=== PATIENT | female | born 1970 | race Caucasian/White ===

== ENCOUNTER 2018-03-15 09:00 | Outpatient (RCR) | payer OTHER, SELFPAY ==
--- NOTE | 2018-03-15 11:07 | BH.SGPN ---
Service Group Progress Note - Session Psychotherapy Session #1 Date Open:: 03/15/18 Time Started:: 09:10 Time Stopped:: 10:00 Type of Group:: Process - 4 group members Goal of Group:: The goal of today's group was to check-in with client's mood, stressors, and positives, and review homework. Client Response/Progress/Benefit:: Pt participated when prompted. This was pt's first group and she shared that she is in the program to better manage her depression, anxiety, and stress. Reports that getting overwhelmed in the past few months has led to depression. No progress noted. Will continue in program to maintain safety, prevent decompensation, and increase coping skills. Staff Interventions:: Therapist used open-ended questions to elicit information about client's current stressors and mood state. Therapist was supportive by using active listening and reflection.
--- NOTE | 2018-03-17 10:50 | BH.NOTE ---
BH: Inpatient Note - Notes Behavioral Health Inpatient Note: Client's preferred pharmacy is: [facility] [address] [place] [address]
--- NOTE | 2018-03-17 11:03 | BH.SGPN ---
Service Group Progress Note - Session Psychotherapy Session #1 Date Open:: 03/17/18 Time Started:: 09:10 Time Stopped:: 10:00 Type of Group:: Process - 6 group members Goal of Group:: The goal of today's group was to check-in with client's mood, stressors, and positives, and review homework Client Response/Progress/Benefit:: Pt spoked when prompted. Attentive throughout the group. Emotion for today is hopeful. Discussed being nervous and overwhelmed during her first day in IOP on Tuesday. Discussed how emotional and exhausting coming to IOP was that she ended up falling asleep when she got home. Ultimately, this led to missing an appointment leading to anxiety and ruminations. Overall she reports that she is hopeful that IOP will improve her symptoms. Reports that being off work for the last two days has helped decrease some stress. Benefited from group support and feedback. Will continues in IOP to maintain safety, prevent further decompensation, and increase functioning. Eye Contact:: Fair Motor Activity:: Restless Appearance:: Casual Speech:: Appropriate Mood:: Anxious, Depressed Affect:: Congruent Thoughts:: Linear, Logical, No evidence of hallucinations/delusions noted Staff Interventions:: Therapist used open-ended questions to elicit information about client's current stressors and mood state. Therapist was supportive by using active listening and reflection.
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
--- NOTE | 2018-03-17 13:41 | BH.DR.ITP ---
Initial Treatment Plan - Patient Information Visit Information: ADMISSION DATE: EXPECTED LOS: 4-6 weeks Diagnoses:: Major depressive disorder recurrent moderate F 33.1 - Problems/Symptoms Problem #1:: Depression Symptom:: Sad mood, anhedonia, decreased energy, recent suicidal ideation, biologic disruption of sleep and appetite Problem #2:: Anxiety Symptom:: rumination
--- NOTE | 2018-03-17 14:32 | BH.SGPN_ITS ---
Service Group Progress Note - Session Psychotherapy Session #2 Date Open:: 03/17/18 - 7 group members Time Started:: 10:10 Time Stopped:: 11:15 Targeted Problem #:: 1 Type of Group:: Illness Management Goal of Group:: To increase understanding of what conflict is and increase awareness of how group members manage conflict. Client Response/Progress/Benefit:: Client responded well to session, active participant. Client appeared to connect with the quote, nodding to peers? comments. Client reported one can have internal and external conflict. Client identified her conflict resolution style as accommodating at work as she ?doesn? t want to stir the pot? which often leads to client feeling like her opinions and thoughts do not matter. Client shared she is not happy with her current conflict resolution style as it creates low self-esteem and her needs not being met. Client appeared to benefit from increasing awareness of her personal conflict resolution style. Client first week of IOP, limited progress, but appears to be gaining awareness per her report. Client to continue IOP to promote mood stability and prevent decompensation. Eye Contact:: Good Motor Activity:: Appropriate Appearance:: Neat Speech:: Appropriate Mood:: Anxious Affect:: Constricted Thoughts:: Linear, No evidence of hallucinations/delusions noted Staff Interventions:: Therapist facilitated discussion about conflict and conflict resolution. Therapist led group in an activity in which group members had to identify their initial response to conflict and how their response changes based on different situations. Therapist assisted clients with connecting the impact current conflict style has on their mental health.
--- NOTE | 2018-03-20 10:31 | BH.SGPN_ITS ---
Service Group Progress Note - Session Psychotherapy Session #1 Date Open:: 03/20/18 - 6 group members Time Started:: 09:03 Time Stopped:: 10:10 Targeted Problem #:: 1 Type of Group:: Process Goal of Group:: The goal of today's group was to check-in with client's mood, stressors, and positives, review homework and introduce topic for the day. Client Response/Progress/Benefit:: Client responded well to session, quiet, but participating when prompted. Client reports feeling pleased as client normally struggles with Mother's Day and not having her own children, but was able to better cope with her emotions rather than isolate and have negative thinking. Client stated she spent time with supports this weekend and was able to see her mother, who has progressing health issues, without feeling a crash after. Client reported being aware of her emotions and being realistic with herself has helped client increase emotional regulation. Client appeared to benefit from reflecting on positives from the weekend. Progress noted in client' s generalization of coping skills and use of social supports, but can continue to benefit from mood stability. Eye Contact:: Good Motor Activity:: Appropriate Appearance:: Neat Speech:: Appropriate Mood:: Euthymic Affect:: Constricted Thoughts:: Linear, No evidence of hallucinations/delusions noted Staff Interventions:: Therapist used open-ended questions to elicit information about client's current stressors and mood state. Therapist was supportive by using active listening and reflection.
--- NOTE | 2018-03-20 15:37 | BH.SGPN ---
Service Group Progress Note - Session Psychotherapy Session #2 Date Open:: 03/20/18 Time Started:: 10:21 Time Stopped:: 11:22 Targeted Problem #:: 1 Type of Group:: Illness Management - 6 participants Goal of Group:: To increase understanding of the impact viewing situations as impossible can have on our mental health. Client Response/Progress/Benefit:: Client well engaged active participant throughout, appearing to respond positively to group. She did well to engage in discussion reviewing how an impossible mindset can impact ones mental-health symptoms. Client initially took on a passive participatory role in the activity portion; however, with encouragement was able to actively engage and provide input and direction to the participants who were unable to see. CLient benefitted from processing her thoughts and emotions experienced in the activity and identified that fear of failure and self-doubt held her back initially. Client able to make connections between emotions experienced in the activity and her ability to manage stressful situations in her own daily life. Client recommended continued emphasis in treatment on improving stress management skills and challenging ruminating thoughts that cause overwhelming anxiety. Eye Contact:: Fair Motor Activity:: Appropriate Appearance:: Casual Speech:: Appropriate Mood:: Anxious Affect:: Constricted Thoughts:: Linear, Logical, No evidence of hallucinations/delusions noted Staff Interventions:: Therapist facilitated discussion about what it means to overcome what seems impossible. Therapist led group in an activity that would initially seem impossible to complete, but once group members looked at the problem in a different way they would be able to see alternative solutions. Therapist utilized the activity as a tool to discuss overcoming those situations that seem impossible to get through. Psychotherapy Session #3 Date Open:: 03/20/18 Time Started:: 11:28 Time Stopped:: 12:18 Targeted Problem #:: 1 Type of Group:: Functional Skills Development - 6 participants Goal of Group:: To identify personal barriers that get in the way of accomplishing tasks and identify internal and external resources to help overcome difficult situations. Client Response/Progress/Benefit:: Client responded well to session and was able to remain actively engaged in the discussion. She reviewed the definitions of internal and external barriers and resources with the group and worked to determine the potential barriers one may have that causes them to remain in the impossible mindset. Client appeared to benefit from listening to others share their own personal barriers and expressed relating to the internal barriers of black and white thinking and fear of failure or embarassment. Client is making progress in her ability to connect with the materials discussed in treatment and would benefit from continued focus on improving her ability to apply these skills to her own life. Eye Contact:: Good Motor Activity:: Appropriate Appearance:: Casual Speech:: Appropriate Mood:: Anxious Affect:: Congruent Thoughts:: Linear, Logical, No evidence of hallucinations/delusions noted Staff Interventions:: Therapist facilitated discussion about internal and external resources and helped clients connect various internal resources they use. Therapist provided group members with a handout that gave information about various external resources the clients could utilize to get support. Therapist gave clients a worksheet in which they were asked to identify several barriers that get in their way to overcoming difficult situations. They also were asked to identify several internal and external resources they could use when needed.
--- NOTE | 2018-03-22 13:20 | BH.MTP ---
Master Treatment Plan - Patient Information Program Physician:: Dr. Huynh Primary Therapist:: Beatriz Chamberlain, [facility] - Psychiatric Diagnoses Psychiatric Diagnoses:: Major depressive disorder recurrent moderate. Anxiety unspecified. Cluster B traits Diagnosis Code(s):: F 33.1 - Estimated LOS Estimated LOS (in weeks):: 6 Problem/Goal #1 - Problem/Goal #1 Stated Goal:: Client will reduce depression, suicidal ideations and hopelessness due to Major Depressive Disorder through [facility] Services. Description of Barriers: Client's negative thinking, distorted thought patterns, grief from father's recent , stress at work, difficulty applying skills learned and suicidal ideations are all potential barriers to treatment. Functional Impact: client's worsening depression and anxiety are contributing to client having a challenging time completing her job duties as a result is behind at work. Client also not able to complete daily responsibilites at home i.e. dishes, sweeping, laundry, etc. Client not functioning at baseline. Goal Relevant Strengths/Supports: Client is intelligent, has good insight, and is motivated to get better. - Objectives Objective #1 Stated Objective: Client will identify 2-3 depressive thinking patterns and be able to challenge and replace negative thoughts. Interventions: Therapist will assist client in identifying depressive thinking patterns and provide client with resources to help teach client strategies in defeating negative thoughts. Discharge Criteria: Client will have met this objective when can identify at least two depressive thinking patterns and be able to defeat depressive and suicidal thoughts. Target Date: 04/26/18 Review Date: 04/12/18 Objective #2 Stated Objective: Client will learn and utilize 2-3 healthy coping strategies to manage mental health symptoms. Interventions: Therapist will help client develop insight into his mental health triggers and help identify strategies to help manage symptoms. Discharge Criteria: Client will have met this goal when can identify and has utilized at least 2 healthy coping strategies that help manage depressive symptoms. Target Date: 04/26/18 Review Date: 04/12/18 Problem/Goal #2 - Problem/Goal #2 Stated Goal:: Reduce overall frequency, intensity, and duration of the anxiety so that daily functioning is not impaired. Description of Barriers: Client's negative thinking, distorted thought patterns, grief from father's recent , stress at work, difficulty applying skills learned and suicidal ideations are all potential barriers to treatment. Functional Impact: client's worsening depression and anxiety are contributing to client having a challenging time completing her job duties as a result is behind at work. Client also not able to complete daily responsibilites at home i.e. dishes, sweeping, laundry, etc. Client not functioning at baseline. Goal Relevant Strengths/Supports: Client is intelligent, has good insight, and is motivated to get better. - Objectives Objective #1 Stated Objective: Client will identify 2-3 anxiety triggers and 2 coping skills to use when feeling anxious. Interventions: Therapist will help client identify her triggers and teach client various coping strategies to effectively cope with anxious symptoms. Discharge Criteria: Client will have achieved this goal when can identify at least 2 triggers, verbalize two healthy coping strategies to manage anxious symptoms. Target Date: 04/26/18 Review Date: 04/12/18
--- NOTE | 2018-03-23 10:34 | BH.SGPN_ITS ---
Service Group Progress Note - Session Psychotherapy Session #1 Date Open:: 03/23/18 - 4 group members Time Started:: 09:05 Time Stopped:: 10:10 Targeted Problem #:: 1 Type of Group:: Process Goal of Group:: The goal of today's group was to check-in with client's mood, stressors, and positives, review homework and introduce topic for the day. Client Response/Progress/Benefit:: Client responded well to session, participating when prompted and connecting with peers. Client reported when she arrived at group today she felt completely overwhelmed like I had been chewed up and spit out, but after processing her situation she feels content. Client shared she has been experiencing increased anxiety regarding decision- making and work. Client stated for years she has been putting her mental health on the backburner and taking a few days off at a time as a Band-Aid. Client reported she now realizes the consequences if she does not take time to address and improve her emotional wellness. Client shared her anxiety has been pouring over into other areas of her life causing her to shutdown. Client stated yesterday she felt very anxious and normally I would isolate but client went out with a friend and had self-awareness of her emotions. Client appeared to benefit from receiving support from group. Progress noted in client's increased self-awareness, but can continue to benefit from implementing thought challenging and decision-making skills. Eye Contact:: Good Motor Activity:: Appropriate Appearance:: Neat Speech:: Appropriate Mood:: Anxious Affect:: Constricted - became tearful Thoughts:: Linear, No evidence of hallucinations/delusions noted Staff Interventions:: Therapist used open-ended questions to elicit information about client's current stressors and mood state. Therapist was supportive by using active listening and reflection.
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
--- NOTE | 2018-03-23 14:30 | BH.MDN ---
Multi-Disciplinary Note - Note 60-min Individual Time Started:: 12:20 Date: 03/23/18 Purpose of session/treatment goals addressed:: Purpose of session was to assess current symptoms and stressors. other topics included: solidifying treatment goals, gathering additional background, and coping skills. Eye Contact:: Good Motor Activity:: Appropriate Appearance:: Neat Speech:: Appropriate Mood:: Anxious Affect:: Congruent Thoughts:: Linear, Logical, No evidence of hallucinations/delusions noted Staff Interventions:: Therapsit utilized open ended questions to elicit pt's current symptoms and stressors. Therapist collaborated with pt to solidfy treatment goals for IOP. Therapist elicited further background information and helped pt connect past experiences to current situation. Therapist provided pt with homework to make a list of the current and past healthy coping skills that pt uses. Therpist encouraged pt to set small daily goals Client Response:: Pt receptive to session by openly communicating thoughts and feelings. Pt reported she has been anxious about work which makes her feel overwhelmed. Pt reported she had a difficult conversation with her boss, which had resulted in increased anxiety. Pt shared initially she wanted to isolate to ignore her problems, but was able to stop herself because she recognized isolating wasn't going to help her. Pt reported instead of isolating she went out with a friend which she shared did seem to help. Pt shared she was able to work things out this morning and is already feeling better. Pt confirmed treatment goals of reducing depression and anxiety by increasing coping skills and challenging negative thought patterns. Pt able to identify several healthy coping skills she has found to be helpful in the past and agreeable to start incorporating into her daily routine. Risks/Concerns:: Pt has hx of passive thoughts of , denies current plan or intention. Progress Toward Goals/Plan:: Progress noted with pt using healthy skill of seeking support when anxious versus isolating. Limited progress given pt has only been in IOP for one week. Pt to continue IOP level of care to decrease depression and anxiety, improve daily functioning and prevent decompensation. Time Stopped:: 13:30
--- NOTE | 2018-03-23 17:00 | BH.SGPN_ITS ---
Service Group Progress Note - Session Psychotherapy Session #2 Date Open:: 03/23/18 Time Started:: 10:21 Time Stopped:: 11:15 Targeted Problem #:: 1 Type of Group:: Illness Management - 4 participants Goal of Group:: To increase understanding of self-esteem and the impact it can have on mental health. Another goal was to identify what factors impact self- esteem levels and what ways self-talk may be negatively impacting mental health and self-esteem levels. Client Response/Progress/Benefit:: Client responded well to session and appeared to connect with group topic of self-esteem. Client was able to provide input to the group and openly discussed the various factors that may contribute to her own self-esteem levels. Client identified that trying to keep up with the Lloyd' or meet the unrealistic pressures of others as major factors impacting client perception of self. She appeared to benefit from discussion reviewing the way we talk to ourselves impacts out sense of self worth. CLient identified that she often tells herself she doesn;t do a good job or is a failure at work which leads her to feel overwhelmed and become frustrated or shut down. CLient identified a desire to begin to challenge these negative messages she often uses when talking to self and indicated connecting with the statements shared by others. CLient continues to display increased understanding of treatment concepts discussed and is recommended continued IOP to work on beginning to actively apply these concepts to daily life. Eye Contact:: Good Motor Activity:: Appropriate Appearance:: Casual Speech:: Appropriate Mood:: Anxious, Dysthymic Affect:: Congruent Thoughts:: Linear, Logical, No evidence of hallucinations/delusions noted Staff Interventions:: Therapist facilitated group discussion about defining self -confidence and eliciting what clients are confident about. Therapist helped group members make connections between their own self-talk messages and the impacts can have on mental health and self-esteem levels. Therapist provided each group member with a handout in which members further explored personal self -talk statements and led the group in processing each statement. Therapist provided support by using active listening. Psychotherapy Session #3 Date Open:: 03/23/18 Time Started:: 11:27 Time Stopped:: 12:22 Targeted Problem #:: 1 Type of Group:: Functional Skills Development - 4 participants Goal of Group:: To increase self-awareness of view of self and identify how view impacts mental health functioning. Another purpose was to identify strategies for challenging negative self-talk and increasing awareness and understanding of personal rights Client Response/Progress/Benefit:: I again did well to respond to the session was actively engaged in the discussion covering strategies challenge negative self talk statements as well as the personal bill of rights activity. Indicated oftentimes struggling to challenge negative self talk because she believes it is deserved or out of her control. Client provided example specific to her occupation and appeared to benefit from processing this with the group. Client was open and receptive to positive feedback provided by fellow participants encouraging her to try and identify alternative perspectives. She worked with the group on reviewing and processing the personal bill of rights handout. Client indicated often experiencing difficulty in allowing herself to believe she has the right to do or not do the various items discussed and handout; such as I have the right to make mistakes and not have to be perfect. Client displaying progress in her ability to openly discuss her own thoughts and feelings the group environment and is beginning to display increased levels of insight into her own mental health symptoms. Recommended continued IOP in order to further client ability to internalize to utilize treatment concepts discussed. Staff Interventions:: Therapist facilitated a discussion regarding consequences of not challenging negative self-talk and aided participants in identifying strategies to challenge and replace negative self-talk messages. Therapist provided a Personal Bill of Rights handout and worked with the group process each statement and identify ways in which these statements could be used to promote positive self-talk and improve overall self-esteem levels.
--- NOTE | 2018-03-24 11:32 | BH.SGPN ---
Service Group Progress Note - Session Psychotherapy Session #1 Date Open:: 03/24/18 - 4 group members Time Started:: 09:05 Time Stopped:: 10:05 Targeted Problem #:: 1 Type of Group:: Process Goal of Group:: The goal of today's group was to check-in with client's mood, stressors, and positives, review homework and introduce topic for the day. Client Response/Progress/Benefit:: Client responded well to session, active participant. Client reports feeling excited today as she shared she has made important first steps towards improving her mental health. Client shared she had been struggling with a decision to keep or get rid of her new dog. Client stated she at first wanted the dog so she could love something but now client realizes the responsibility is exacerbating her anxiety. Client reported she has made the decision to get rid of the dog so she can work on improving her mental health. Client expressed having negative thoughts of herself after making the decision, but has been actively challenging them. Client appeared to benefit from processing her emotions with the group. Client progressing as shown by increased decision-making and acceptance of working on her mental health, but continues to struggle with negative core beliefs and managing emotions. Eye Contact:: Good Motor Activity:: Appropriate Appearance:: Neat Speech:: Appropriate Mood:: Euthymic Affect:: Congruent Thoughts:: Linear, No evidence of hallucinations/delusions noted Staff Interventions:: Therapist used open-ended questions to elicit information about client's current stressors and mood state. Therapist was supportive by using active listening and reflection.
--- NOTE | 2018-03-24 15:44 | BH.SGPN ---
Service Group Progress Note - Session Psychotherapy Session #2 Date Open:: 03/24/18 Time Started:: 10:20 Time Stopped:: 11:10 Targeted Problem #:: 1 Type of Group:: Illness Management Goal of Group:: To increase understanding of what strengths are and identify individual strengths. Client Response/Progress/Benefit:: Pt contributed to discussion and listened attentively to others. Pt reported she has a difficult time identifying her personal strengths. She shared when others tell her positive things about her, she has a hard time believing them because she thinks they are just being nice. Pt recognizes the negative impact it has on her mental health by not identifying and utilizing her personal strengths. Pt able to identify several of her positive strengths including she is a helper, hard working, and honest. Pt seemed to benefit from identifying her personal strengths as well as increasing awareness of the barriers to recognizing her strengths more often. Eye Contact:: Fair Motor Activity:: Appropriate Appearance:: Casual Speech:: Appropriate Mood:: Anxious, Dysthymic Thoughts:: Linear, Logical, No evidence of hallucinations/delusions noted Staff Interventions:: Therapist facilitated discussion about what are strengths and assisted group members in identifying examples of strengths. Therapist led an activity in which group members were given the opportunity to identify five personal strengths. Therapist assisted clients in connecting the importance of recognizing personal strengths. Psychotherapy Session #3 Date Open:: 03/24/18 Time Started:: 11:20 Time Stopped:: 12:15 Targeted Problem #:: 1 Type of Group:: Functional Skills Development Goal of Group:: To identify what gets in their way of recognizing and utilizing their strengths and identifying ways to make strengths easier to access. Client Response/Progress/Benefit:: Pt listened attentively to others and contributed positively to discussion. When processing activity pt able to connect when she doesn't recognize and utilize her strengths it tends to lead to increased negative thinking as well as make tasks harder to complete. Pt connected with how visual aids can be a helpful strategy to help increase recognition and utilization of personal strengths. Pt seemed to benefit from group brainstorm of different strategies to increase use of indiviudal strengths. Eye Contact:: Fair Motor Activity:: Appropriate Appearance:: Casual Speech:: Appropriate Mood:: Anxious, Dysthymic Affect:: Congruent Thoughts:: Linear, Logical, No evidence of hallucinations/delusions noted Staff Interventions:: Therapist utilized an activity as a tool in helping client?s recognize the things that can get in their way from utilizing their strengths. Therapist processed the activity, helping others connect challenges that keep them from recognizing and using their strengths. Therapist provided support by using active listening and providing feedback.
--- NOTE | 2018-03-27 12:28 | BH.SGPN_ITS ---
Service Group Progress Note - Session Psychotherapy Session #1 Date Open:: 03/27/18 Time Started:: 09:03 Time Stopped:: 10:01 Targeted Problem #:: 1 Type of Group:: Process - 7 participants Goal of Group:: The goal of group was to check-in on client?s mood, stressors and positives, review homework and introduce the topic of the day. Client Response/Progress/Benefit:: Client responded well to session and remained actively engaged throughout. She was in a positive mood and discussed having had a good weekend with friends. Client discussed going to [employer] over the weekend which had been a positive experience. She shared that she did struggle somewhat with remaining positive when visiting her mother at the skilled nursing as client does not like to see her mother's declining health. Client additionally shared dealing with stress of her dog getting injured. She benefited from sharing and processing frustrations with the group. Client displaying progress in her ability to regulate emotions and challenge overwhelming or ruminating thoughts as they arise. Recommended continued work on identifying and challenging distorted thinking patterns. Eye Contact:: Good Motor Activity:: Appropriate Appearance:: Casual Speech:: Appropriate Mood:: Euthymic Affect:: Congruent Thoughts:: Linear, Logical, No evidence of hallucinations/delusions noted Staff Interventions:: Therapist used open-ended questions to elicit information about client's current stressors and mood state. Therapist was supportive by using active listening and reflection. Therapist utilized a quote related to confidence as an aid in introducing the topic of the day and facilitated discussion of quote.
--- NOTE | 2018-03-27 15:11 | BH.MDN ---
Multi-Disciplinary Note - Note 45-min Individual Time Started:: 12:25 Date: 03/27/18 Purpose of session/treatment goals addressed:: Purpose of session was to elicit pt's current symptoms and stressors. Other topics included: identifying coping skills. Eye Contact:: Good Motor Activity:: Appropriate Appearance:: Casual Speech:: Appropriate Mood:: Euthymic Affect:: Congruent Thoughts:: Linear, Logical, No evidence of hallucinations/delusions noted Staff Interventions:: Therapist used open ended questions to elicit pt's current symptoms and stressors. Therapist processed weekend with pt, assisting pt with identifying positives. Therapist elicited pt's current and past coping skills that she has found helpful to use. Therapist taught pt about different mindfulness coping skills as well as education about importance of practicing coping skills when not in distress. Therapist provided pt homework of practicing different coping skills each day throughout the week. Client Response:: Pt reported her weekend went really good because she was productive and used her healthy coping skills. Pt shared she was able to catch herself when being negative and found it much easier to reframe and challenge her negative thought patterns. Pt reported on Tuesday she went out with friends to a concert and was able to really enjoy herself and didn't experience the depressive thought patterns. Pt shared she is also doing better with accepting her work situation, not letting the various hurdles of having time of work keep her from getting the help she needs. Pt able to identify several healthy coping strategies that she has found to be helpful for her either currently or in the past. Pt connected with the coping skills handout provided to her by therapist. Stated that she finds it helpful to look at the different coping skills categories, this way she doesn't only use distraction techniques. Pt agreeable to practice different coping skills from the handout each day to see which coping skills work best for her. Risks/Concerns:: Pt denies SI/HI, plan, or intention to date. No risks or concerns at this time. Progress Toward Goals/Plan:: Pt demonstrating progress as evidenced by pt reporting decrease in frequency and intensity of depressive and anxious symptoms. Pt reported she is utilizing her coping skills on a daily basis and is able to reframe unhealthy thought patterns. Pt to continue IOP to maintain gains and prevent decompensation. Plan is for pt to work on increasing her knowledge and generalization of healthy coping skills throughout the week. Time Stopped:: 13:10
--- NOTE | 2018-03-27 15:29 | BH.SGPN_ITS ---
Service Group Progress Note - Session Psychotherapy Session #2 Date Open:: 03/27/18 group members Time Started:: 10:13 Time Stopped:: 11:13 Targeted Problem #:: 1 Type of Group:: Illness Management Goal of Group:: The goal of group was to increase understanding of goals and goal setting and practice a method of goal setting. Client Response/Progress/Benefit:: Client responded well to session, passive participant at times. Client appeared to connect with quote sharing, ?it?s more about what you learn and how you grow? when working towards goals. Client shared goals are what motivates us and gives us a sense of purpose. Client stated high expectations, negative thinking, and self-fulfilling prophecies can get in the way of accomplishing goals. Client reported one?s goals need to be relevant or ?we won?t follow through with them.? Client contributed to the discussion of SMART goals and helped the group establish realistic goals during the activity. Client appeared to benefit from increasing awareness of the importance of goal setting and practicing in the moment strategies. Progress noted in client?s improved insight and mood, but can continue to benefit from increased emotional regulation. Eye Contact:: Good Motor Activity:: Appropriate Appearance:: Neat Speech:: Appropriate Mood:: Euthymic Affect:: Constricted Thoughts:: Linear, No evidence of hallucinations/delusions noted Staff Interventions:: Therapist facilitated group discussion about goals and goal setting. Therapist taught group the acronym SMART (Specific, Measurable, Achievable, Realistic, Timely) as a tool to help with goal setting. Therapist led the group in an activity to be used as a method of practicing goal setting. Therapist provided the group with a small beach ball and explained their goal was to keep the ball in the air for as long as possible. Therapist guided the group through the SMART acronym as group was participating in activity. Psychotherapy Session #3 Date Open:: 03/27/18 group members Time Started:: 11:23 Time Stopped:: 12:18 Targeted Problem #:: 1 Type of Group:: Functional Skills Development Goal of Group:: The goal of group was to identify a goal for the week, explore the potential barriers to achieving that set goal, and identify strategies to overcome barriers. Client Response/Progress/Benefit:: Client responded well to session, active participant. Client identified her personal goal for the week as use one new coping skill a day for 5 days. Client reported this goal improve her ability to cope with anxiety and improve self-esteem. Client identified her barriers waiting to practice until she is too stress or anxious and waiting too long to initiate. Client identified solutions for her barriers as not waiting until she is stressed to practice, but practicing early, and starting when she recognizes the first warning signs. Client appeared to benefit from identifying a goal for the week as well as problem-solving her barriers. Client seems to be progressing as shown by her improved awareness and improved mood, but can continue to benefit from challenging negative thoughts. Eye Contact:: Good Motor Activity:: Appropriate Appearance:: Neat Speech:: Appropriate Mood:: Euthymic Affect:: Congruent Thoughts:: Linear, No evidence of hallucinations/delusions noted Staff Interventions:: Therapist explained goal setting activity to group. Therapist provided each group member with a piece of paper and asked them to write down a goal they would like to accomplish over the weekend. Therapist then asked each member to draw a path to their goal and identify barriers that could potentially get in the way of their goal. Therapist led group in processing their goal maps and had them come up with strategies to overcome the barriers. Therapist provided support by using reflective listening.
--- NOTE | 2018-03-29 11:20 | BH.SGPN ---
Service Group Progress Note - Session Psychotherapy Session #1 Date Open:: 03/29/18 Time Started:: 09:08 Time Stopped:: 09:58 Targeted Problem #:: 1 Type of Group:: Process Goal of Group:: The goal of today's group was to check-in with client's mood, stressors, and positives, review homework and introduce topic for the day. Client Response/Progress/Benefit:: Client reported this morning she woke up late, which resulted in her normal morning routine being disrupted. Client shared in the past she would have had a difficult time getting through the rest of the day once her morning routine was disrupted, however recognized today she used positive self talk to help her get through the morning. Client shared she is able to recognize the progress she is making each day by utilizing her healthy coping skills when needed. Client demonstrating progress as evidenced by client reporting decreased depressive and anxious symptoms as well as utilization of healthy coping skills. Eye Contact:: Good Motor Activity:: Appropriate Appearance:: Casual Speech:: Appropriate Mood:: Euthymic Affect:: Congruent Thoughts:: Linear, Logical, No evidence of hallucinations/delusions noted Staff Interventions:: Therapist used open-ended questions to elicit information about client's current stressors and mood state. Therapist was supportive by using active listening and reflection.
--- NOTE | 2018-03-29 11:34 | BH.SGPN_ITS ---
Service Group Progress Note - Session Psychotherapy Session #1 Date Open:: 03/29/18 Time Started:: 09:08 Time Stopped:: 09:58 Targeted Problem #:: 1 Type of Group:: Process Goal of Group:: The goal of today's group was to check-in with client's mood, stressors, and positives, review homework and introduce topic for the day. Client Response/Progress/Benefit:: Client reported this morning she woke up late , which resulted in her normal morning routine being disrupted. Client shared in the past she would have had a difficult time getting through the rest of the day once her morning routine was disrupted, however recognized today she used positive self talk to help her get through the morning. Client shared she is able to recognize the progress she is making each day by utilizing her healthy coping skills when needed. Client demonstrating progress as evidenced by client reporting decreased depressive and anxious symptoms as well as utilization of healthy coping skills. Eye Contact:: Good Motor Activity:: Appropriate Appearance:: Casual Speech:: Appropriate Mood:: Euthymic Affect:: Congruent Thoughts:: Linear, Logical, No evidence of hallucinations/delusions noted Staff Interventions:: Therapist used open-ended questions to elicit information about client's current stressors and mood state. Therapist was supportive by using active listening and reflection.
--- NOTE | 2018-03-29 14:34 | BH.SGPN_ITS ---
Service Group Progress Note - Session Psychotherapy Session #2 Date Open:: 03/29/18 - 5 group members Time Started:: 10:11 Time Stopped:: 11:06 Targeted Problem #:: 1 Type of Group:: Illness Management Goal of Group:: The goal of group was to increase understanding of coping strategies and impact problems have on self. Another goal was to practice utilizing coping skills in the moment. Client Response/Progress/Benefit:: Client responded well to session, active participant. Client connected with the quote sharing we have to use our reyes mind to cope with problems or they get worse.? Client reported one learns healthy and unhealthy coping skills from family, peers, therapy, and experiences. Client did well in the activity and appeared to connect that having a good base and balance of coping skills is important for mental wellness. Client shared coping skills are more about quality than quantity stating, ?if you don?t like it you won?t use it.? Client agreed with group that one's coping skill base should include internal and external supports. Client shared her base is not balanced as client relies on her external supports such as friends more than using internal skills which has had negative results when client cannot reach her friends. Client shared she wants to improve her ability to use internal coping so she does not ?break? when her supports are not around. Client appeared to benefit from increasing awareness of how coping skills impact mental health. Progress noted in client?s increased awareness. Client to continue IOP to promote mood stability. Eye Contact:: Good Motor Activity:: Appropriate Appearance:: Neat Speech:: Appropriate Mood:: Euthymic Affect:: Constricted Thoughts:: Linear, No evidence of hallucinations/delusions noted Staff Interventions:: Therapist facilitated the group discussion about coping strategies. Therapist provided group members with folders and gave them the challenge to work together and build the tallest tower with the given supplies. Therapist utilized the activity as a tool to process what it feels like when dealing with problems and what strategies they used to cope throughout activity. Psychotherapy Session #3 Date Open:: 03/29/18 - 6 group members Time Started:: 11:15 Time Stopped:: 12:15 Targeted Problem #:: 1 Type of Group:: Functional Skills Development Goal of Group:: Goal was to increase client?s self-awareness on their use of coping strategies and increase repertoire of healthy coping strategies. Client Response/Progress/Benefit:: Client responded well to session, passive participant at times. Client reported she often relies on her external supports to manage her emotions, which client reports is not ?sustainable?. However, shared she is working to improve her internal coping skills by trying a new one daily. Client helped the group process the pros and cons of the categories of coping skills and reported balance is important because each category serves a different purpose. Client created a coping skills menu to increase her repertoire of healthy skills including: arts and crafts, yoga, journaling, walking, and writing out negative thoughts to challenge them. Client appeared to benefit from improving her awareness of the different types of coping skills as well as increasing her coping skill repertoire. Progress noted in client's increased application of healthy coping skills and improved mood, but can continue to benefit from increased emotional regulation. Eye Contact:: Good Motor Activity:: Appropriate Appearance:: Neat Speech:: Appropriate Mood:: Euthymic Affect:: Congruent Thoughts:: Linear, No evidence of hallucinations/delusions noted Staff Interventions:: Therapist facilitated discussion about the different types of coping skills. Therapist led group in an activity in which group members were asked to brainstorm coping strategies that fit in each coping skill category. Therapist reviewed each coping strategy with the group and led a discussion about whether the coping strategies identified were healthy or unhealthy. Therapist provided homework in which group members creating a coping skills menu and would practice two skills a day.
--- NOTE | 2018-03-30 13:20 | BH.SGPN_ITS ---
Service Group Progress Note - Session Psychotherapy Session #2 Date Open:: 03/24/18 Time Started:: 10:20 Time Stopped:: 11:10 Targeted Problem #:: 1 Type of Group:: Illness Management Goal of Group:: To increase understanding of what strengths are and identify individual strengths. Client Response/Progress/Benefit:: Pt contributed to discussion and listened attentively to others. Pt reported she has a difficult time identifying her personal strengths. She shared when others tell her positive things about her, she has a hard time believing them because she thinks they are just being nice . Pt recognizes the negative impact it has on her mental health by not identifying and utilizing her personal strengths. Pt able to identify several of her positive strengths including she is a helper, hard working, and honest. Pt seemed to benefit from identifying her personal strengths as well as increasing awareness of the barriers to recognizing her strengths more often. Eye Contact:: Fair Motor Activity:: Appropriate Appearance:: Casual Speech:: Appropriate Mood:: Anxious, Dysthymic Thoughts:: Linear, Logical, No evidence of hallucinations/delusions noted Staff Interventions:: Therapist facilitated discussion about what are strengths and assisted group members in identifying examples of strengths. Therapist led an activity in which group members were given the opportunity to identify five personal strengths. Therapist assisted clients in connecting the importance of recognizing personal strengths. Psychotherapy Session #3 Date Open:: 03/24/18 Time Started:: 11:20 Time Stopped:: 12:15 Targeted Problem #:: 1 Type of Group:: Functional Skills Development Goal of Group:: To identify what gets in their way of recognizing and utilizing their strengths and identifying ways to make strengths easier to access. Client Response/Progress/Benefit:: Pt listened attentively to others and contributed positively to discussion. When processing activity pt able to connect when she doesn't recognize and utilize her strengths it tends to lead to increased negative thinking as well as make tasks harder to complete. Pt connected with how visual aids can be a helpful strategy to help increase recognition and utilization of personal strengths. Pt seemed to benefit from group brainstorm of different strategies to increase use of indiviudal strengths. Eye Contact:: Fair Motor Activity:: Appropriate Appearance:: Casual Speech:: Appropriate Mood:: Anxious, Dysthymic Affect:: Congruent Thoughts:: Linear, Logical, No evidence of hallucinations/delusions noted Staff Interventions:: Therapist utilized an activity as a tool in helping client ???s recognize the things that can get in their way from utilizing their strengths. Therapist processed the activity, helping others connect challenges that keep them from recognizing and using their strengths. Therapist provided support by using active listening and providing feedback.
--- NOTE | 2018-03-31 10:45 | BH.SGPN_ITS ---
Service Group Progress Note - Session Psychotherapy Session #1 Date Open:: 18 - 8 group members Time Started:: 09:05 Time Stopped:: 10:10 Targeted Problem #:: 1 Type of Group:: Process Goal of Group:: The goal of today's group was to check-in with clients and review homework from previous group session. Client Response/Progress/Benefit:: Client responded well to session, active participant. Client shared her coping skill chart with the group and received supportive statements. Client stated the chart has been helping client stay consistent and gain more awareness of what coping skills help her. Client reports feeling cheerful today as it is a holiday weekend and client feels more confident in her ability to utilize coping skills. Client shared she decided to keep her dog as she found the pros of keeping the dog outweigh the costs. Client stated, I've been reframing my thoughts a lot and trying to focus on the positives. Client appeared to benefit from reflecting on positives. Progress noted in client's improved mood and generalization of healthy coping skills, but can continue to benefit from challenging negative core beliefs. Eye Contact:: Good Motor Activity:: Appropriate Appearance:: Neat Speech:: Appropriate Mood:: Euthymic Affect:: Full Thoughts:: Linear, No evidence of hallucinations/delusions noted Staff Interventions:: Therapist inquired about each group member?s previous night and current mood state. Therapist reviewed the group member?s homework from previous group session with the group, asking open ended questions to get more information.
--- NOTE | 2018-03-31 15:00 | BH.SGPN ---
Service Group Progress Note - Session Psychotherapy Session #2 Date Open:: 03/31/18 Time Started:: 10:32 Time Stopped:: 11:15 Targeted Problem #:: 1 Type of Group:: Illness Management - 7 participants Goal of Group:: To increase understanding of cognitive distortions, identify examples of when have had unhelpful thinking, and increase awareness of the impact cognitive distortions have on mental health. Eye Contact:: Good Motor Activity:: Appropriate Appearance:: Casual Speech:: Appropriate Mood:: Euthymic Affect:: Constricted Thoughts:: Linear, Logical, No evidence of hallucinations/delusions noted Staff Interventions:: Therapist utilized a quote as a tool to introduce topic of the day. Therapist provided group members with a handout that listed ten cognitive distortions with examples. Therapist facilitated group discussion about cognitive distortions. Therapist led group members in an activity to help them understand the impact cognitive distortions can have on emotions and behavior. Therapist provided support by using active listening and providing feedback. Psychotherapy Session #3 Date Open:: 03/31/18 Time Started:: 11:20 Time Stopped:: 12:23 Targeted Problem #:: 1 Type of Group:: Functional Skills Development - 8 participants Goal of Group:: To identify ways of defeating cognitive distortions and rehearse defeating the identified cognitive distortion. Eye Contact:: Good Motor Activity:: Appropriate Appearance:: Casual Speech:: Appropriate Mood:: Euthymic Affect:: Congruent Thoughts:: Linear, Logical, No evidence of hallucinations/delusions noted Staff Interventions:: Therapist utilized an activity as a tool in helping clients connect the amount of effort one will need to put forth to defeat cognitive distortions. Therapist provided group members with a handout to use as an aid when trying to defeat their unhelpful thinking. Therapist processed the worksheet with group members, helping them reframe the cognitive distortions.
--- NOTE | 2018-04-04 11:42 | BH.SGPN_ITS ---
Service Group Progress Note - Session Psychotherapy Session #1 Date Open:: 04/04/18 Time Started:: 09:10 Time Stopped:: 10:05 Targeted Problem #:: 1 Type of Group:: Process Goal of Group:: The goal of today's group was to check-in with client's mood, stressors, and positives, review homework and introduce topic for the day. Client Response/Progress/Benefit:: Client shared her weekend had its ups and downs. Client reported Tuesday she had a good day in the evening. Shared on Tuesday she received some bad news, but was able to cope by thought challenge and looking at the positives. Client reported she struggled on Tuesday and Tuesday because typically Memorial Day is a important day for her family since her dad was in the parade for 14 years for being [facility], but since he in June it is her first Memorial Day without him. Client shared she was helpful to her mother throughout the weekend, but also went out with her friend to have support and distract self. client demonstrating progress AEB client utilizing her healthy coping skills during difficult moments throughout the weekend. Eye Contact:: Good Motor Activity:: Appropriate Appearance:: Casual Speech:: Appropriate Mood:: Anxious Affect:: Congruent Thoughts:: Linear, Logical, No evidence of hallucinations/delusions noted Staff Interventions:: Therapist used open-ended questions to elicit information about client's current stressors and mood state. Therapist was supportive by using active listening and reflection.
--- NOTE | 2018-04-04 14:13 | BH.MDN ---
Multi-Disciplinary Note - Note 45-min Individual Time Started:: 12:20 Date: 04/04/18 Purpose of session/treatment goals addressed:: Purpose of session was to assess current symptoms and stressors. Addressed acute stressor that occured over weekend and common grief responses. Eye Contact:: Good Motor Activity:: Appropriate Appearance:: Casual Speech:: Appropriate Mood:: Anxious, Depressed, Other - tearful when talking about her father Affect:: Congruent Thoughts:: Linear, Logical, No evidence of hallucinations/delusions noted Staff Interventions:: Therapist utilized open ended questions to elicit pt's current symptoms and stressors. Therapist processed recent psychosocial stressor that occured on Tuesday. Assisted pt with thought challenge and SMART goal setting. Therapist provided psychoeducation about common reactions to grief. Therapist provided support and validated emotions. Therapist gave homework to pt to call local [employer] to ask about resume writing help and also for pt to complete homework given from last individual session. Client Response:: Pt reported on Tuesday she received a letter from her place of employment that told her in 90 days her contract will be terminated. Pt shared initially she felt shock and disbelief that she was being let go after working there for over 10 years. Pt reported after she processed it a little longer she is realizing this might be a really good thing because it will motivate her to actually leave the job that she hasn't liked for many years. Pt shared she needs to put more focus on completing her resume, which she has struggled writing for the past year. Pt open to looking into the [employer] for resume writing help. Pt agreeable to conact her local [employer] library to see what services are offered. Pt reported she also had a difficult time on Tuesday and Tuesday because of Memorial Day being a significant day for her family, but this is the first Memorial Day without her father which made it harder. Pt reported she noticed herself being more apathetic, less motivated, and not wanting to do anything. Recognized the grief of her father's and the stressor of being let go are events that contributed to her struggling more compared to last week. Pt agreeable to complete her homework from last session that she didn't do. Risks/Concerns:: No risks or concerns at this time. Progress Toward Goals/Plan:: Pt demonstrating progress AEB pt utilizing her healthy coping strategies when faced with a difficult stressor. Pt managed her emotions and thought patterns by using her skills of thought challenge and getting out of the house. Pt recognizes her warning signs of apathy and no motivation since thinking more about her father's . Pt optimistic that she will get out of current funk. Pt to continue IOP to maintain gains and prevent decompensation. Time Stopped:: 13:00
--- NOTE | 2018-04-04 15:22 | BH.MDN_ITS ---
Multi-Disciplinary Note - Note 45-min Individual Time Started:: 12:20 Date: 04/04/18 Purpose of session/treatment goals addressed:: Purpose of session was to assess current symptoms and stressors. Addressed acute stressor that occured over weekend and common grief responses. Eye Contact:: Good Motor Activity:: Appropriate Appearance:: Casual Speech:: Appropriate Mood:: Anxious, Depressed, Other - tearful when talking about her father Affect:: Congruent Thoughts:: Linear, Logical, No evidence of hallucinations/delusions noted Staff Interventions:: Therapist utilized open ended questions to elicit pt's current symptoms and stressors. Therapist processed recent psychosocial stressor that occured on Tuesday. Assisted pt with thought challenge and SMART goal setting. Therapist provided psychoeducation about common reactions to grief. Therapist provided support and validated emotions. Therapist gave homework to pt to call local [employer] to ask about resume writing help and also for pt to complete homework given from last individual session. Client Response:: Pt reported on Tuesday she received a letter from her place of employment that told her in 90 days her contract will be terminated. Pt shared initially she felt shock and disbelief that she was being let go after working there for over 10 years. Pt reported after she processed it a little longer she is realizing this might be a really good thing because it will motivate her to actually leave the job that she hasn't liked for many years. Pt shared she needs to put more focus on completing her resume, which she has struggled writing for the past year. Pt open to looking into the [employer] for resume writing help. Pt agreeable to conact her local [employer] library to see what services are offered. Pt reported she also had a difficult time on Tuesday and Tuesday because of Memorial Day being a significant day for her family , but this is the first Memorial Day without her father which made it harder. Pt reported she noticed herself being more apathetic, less motivated, and not wanting to do anything. Recognized the grief of her father's and the stressor of being let go are events that contributed to her struggling more compared to last week. Pt agreeable to complete her homework from last session that she didn't do. Risks/Concerns:: No risks or concerns at this time. Progress Toward Goals/Plan:: Pt demonstrating progress AEB pt utilizing her healthy coping strategies when faced with a difficult stressor. Pt managed her emotions and thought patterns by using her skills of thought challenge and getting out of the house. Pt recognizes her warning signs of apathy and no motivation since thinking more about her father's . Pt optimistic that she will get out of current funk. Pt to continue IOP to maintain gains and prevent decompensation. Time Stopped:: 13:00
--- NOTE | 2018-04-05 14:39 | BH.SGPN_ITS ---
Service Group Progress Note - Session Psychotherapy Session #2 Date Open:: 04/05/18 group members Time Started:: 10:20 Time Stopped:: 11:15 Targeted Problem #:: 1 Type of Group:: Illness Management Goal of Group:: To increase understanding of resilience and identify the factors that contribute to building resilience. Client Response/Progress/Benefit:: Client responded well to session, active participant. Client engaged in the activity and connected it back to life, sharing, life is really stressful and you have to juggle many things at once. Client responded to the quote stating, if you aren't flexible you stay stuck in the change. Client identified resilience as adapting and bouncing back from adversity. Client helped the group identify factors that contribute to resilience such as supportive connections and courage and confidence. Client reported confidence is important in building resilience because one has to trust their coping skills and ability to do difficulty things. Client also shared that acceptance is an important skill. to have in order to be resilient. Client appeared to benefit from increasing understanding of resilience and how it impacts mental health. Progress noted as shown by client' s improved mood and generalization of coping skills, but can continue to benefit from mood stability. Eye Contact:: Good Motor Activity:: Appropriate Appearance:: Neat Speech:: Appropriate Mood:: Anxious Affect:: Full Thoughts:: Linear, Logical, No evidence of hallucinations/delusions noted Staff Interventions:: Therapist led group in an activity that would induce a chaotic environment and used the activity as a tool in discussing the various stressors people are faced with each day. Therapist facilitated group discussion about resilience and explained the factors of building resilience. Therapist led discussion about factors that contribute to resilience. Therapist provided support by using active listening and providing feedback. Psychotherapy Session #3 Date Open:: 04/05/18 - 9 group members Time Started:: 11:25 Time Stopped:: 12:15 Targeted Problem #:: 1 Type of Group:: Functional Skills Development Goal of Group:: To rehearse resilient factors and identify ways to maintain resilience despite hardships and stressors. Client Response/Progress/Benefit:: Client responded well to session, providing supportive statements to peers. Client participated in an activity aimed to help clients rehearse resilience factors. Client reported the group demonstrated resilience through open communication, teamwork, and being flexible to new ideas. Client identified her personal resilience traits as treating others with kindness, courage, and thinking positive. Client appeared to benefit from increasing her awareness of resilience traits she possesses. Client progressing as shown by her report of reduced anxiety and improved outlook, but can continue to benefit from challenging negative thoughts and unrealistic expectations. Eye Contact:: Good Motor Activity:: Appropriate Appearance:: Neat Speech:: Appropriate Mood:: Anxious Affect:: Full Thoughts:: Linear, Logical, No evidence of hallucinations/delusions noted Staff Interventions:: Therapist led group in an activity in which group members were challenged to stay resilient despite various stressors and hardships added to activity. Therapist provided each group member with a stress ball and used stress ball as a tool to discuss factors of resilient personality. Therapist provided group members with a handout about the building blocks of resilience. Therapist provided support by using reflective listening.
--- NOTE | 2018-04-05 14:46 | BH.SGPN_ITS ---
Service Group Progress Note - Session Psychotherapy Session #2 Date Open:: 04/04/18 Time Started:: 10:19 Time Stopped:: 11:14 Targeted Problem #:: 1 Type of Group:: Illness Management - 6 participants Goal of Group:: To increase understanding of a crisis and improve client?s awareness of personal warning signs before crisis. Client Response/Progress/Benefit:: Client responded positively to group and did well to remain an active participant during group. CLient indicated relating to today's topic of Crisis prevention and management as she had just encountered a potential crisis the previous date. Client worked with the group to define crisis and appeared to benefit from the discussion regarding how our current mental health state can determine whether or not something escalates to the point of crisis. CLient shared that taking time to process helps to prevent crisis as well as ensuring that she is not taking on too many stressors. Client shared with the group that for her crisis looks like a tornado as she often gets swept up in the crisis and ends up left with more damage after the fact. Client is dispalying progress in levels of insight and ability to apply treatment materials to her own life. She is recommended continued IOP to maintain stability and continue to strengthen client ability to cope with stressors. Eye Contact:: Good Motor Activity:: Appropriate Appearance:: Casual Speech:: Appropriate Mood:: Euthymic Affect:: Congruent Thoughts:: Linear, Logical, No evidence of hallucinations/delusions noted Staff Interventions:: Therapist facilitated group discussion about defining a crisis and specifying various events that are considered a crisis. Therapist led the group in discussion about identifying personal warning signs before a crisis and importance of being aware of those signs. Therapist provided support by using active listening and providing feedback. Psychotherapy Session #3 Date Open:: 04/04/18 Time Started:: 11:21 Time Stopped:: 12:18 Targeted Problem #:: 1 Type of Group:: Functional Skills Development - 6 participants Goal of Group:: To increase awareness of warning signs before a crisis and identify interventions/coping strategies that would help clients proactively manage potential crises. Client Response/Progress/Benefit:: Client again did well to remain actively engaged in session and appeared to respond well to discussion covering warning signs and potential coping strategies for crisis prevention. Client discussed with fellow participants potential consequences of not being when identifying crisis warning signs as well as the importance of utilizing healthy coping strategies in order to prevent crisis escalation. Identified her warning signs include stress eating, feeling overwhelmed or out of control, and increased isolation. Client indicated that during these times she is less likely to reach out for help and is working to improve in this area. She benefited from the crisis activity in which clients were given various materials create crisis prevention kids. Client indicated placing a rock kit to remind her to get out into nature as well as a fabric heart as a reminder to make self love and self- care priorities. Client continues to make progress in her ability to turn lice treatment concepts and is expressing a decrease in depressive symptoms. She is recommended continued IOP treatment in order to increase consistency of healthy coping and stress management skills. Eye Contact:: Good Motor Activity:: Appropriate Appearance:: Casual Speech:: Appropriate Mood:: Euthymic Affect:: Congruent Thoughts:: Linear, Logical, No evidence of hallucinations/delusions noted Staff Interventions:: Therapist facilitated group discussion about defining a crisis and specifying various events that are considered a crisis. Therapist led the group in discussion about identifying personal warning signs before a crisis and importance of being aware of those signs. Therapist provided support by using active listening and providing feedback.
--- NOTE | 2018-04-05 15:24 | BH.SGPN ---
Service Group Progress Note - Session Psychotherapy Session #1 Date Open:: 04/05/18 Time Started:: 09:10 Time Stopped:: 10:10 Targeted Problem #:: 1 Type of Group:: Process Goal of Group:: The goal of today's group was to check-in with client's mood, stressors, and positives, review homework and introduce topic for the day. Client Response/Progress/Benefit:: Client reported she has been working on various projects which kept her busy. client shared there were some projects she couldn't get done because thought it was too hot to be outside. Client shared she has been working on challenging her negative thoughts in the moment, which she said has been helping. Reported she tries to look at the big picture versus ruminate about a small issue. client demonstrating progress AEB client reporting being able to complete certain tasks at home as well as starting to challenge negative thought patterns. Client seemed to benefit from expressing thoguhts and feelings as well as support by peers. Eye Contact:: Good Motor Activity:: Appropriate Appearance:: Casual Speech:: Appropriate Mood:: Euthymic Affect:: Congruent Thoughts:: Linear, Logical, No evidence of hallucinations/delusions noted Staff Interventions:: Therapist used open-ended questions to elicit information about client's current stressors and mood state. Therapist was supportive by using active listening and reflection.
--- NOTE | 2018-04-06 10:40 | BH.SGPN ---
Service Group Progress Note - Session Psychotherapy Session #1 Date Open:: 18 - 6 group members Time Started:: 09:05 Time Stopped:: 10:20 Targeted Problem #:: 1 Type of Group:: Process Goal of Group:: The goal of today's group was to check-in with client's mood, stressors, and positives, and introduce topic for the day. Client Response/Progress/Benefit:: Client responded well to session, providing supportive statements to peers. Client reports feeling excited about better opportunities as client shared she is looking at the positives of losing her job. Client stated, all these hard things came at once and I think that happened for a reason. Client reported she has been working on focusing on the positives and what she can change, which client states has helped her cope and manage anxiety. Client reflected on her progress, reporting I used to not be able to handle life, but now client feels more confident and able to cope. Client shared she has been implementing positive affirmations into her morning routine and it has helped improve her mood and be more productive. Client was supportive to peers by sharing her mental health journey struggles and successes which normalized others' experiences. Client appeared to benefit from connecting with peers. Progress noted per client's report of implementing coping skills with the result of an improved outlook and mood. client to continue IOP to promote maintenance and mood stability. Eye Contact:: Good Motor Activity:: Appropriate Appearance:: Neat Speech:: Appropriate Mood:: Euthymic Affect:: Full Thoughts:: Linear, Logical, No evidence of hallucinations/delusions noted Staff Interventions:: Therapist used open-ended questions to elicit information about client's current stressors and mood state. Therapist was supportive by using active listening and reflection.
--- NOTE | 2018-04-06 14:54 | BH.SGPN_ITS ---
Service Group Progress Note - Session Psychotherapy Session #2 Date Open:: 04/06/18 Time Started:: 10:24 Time Stopped:: 11:14 Targeted Problem #:: 1 Type of Group:: Illness Management - 7 participants Goal of Group:: To increase understanding of fear and explore the negative impact fear of failure can have on mental health and decision making. Client Response/Progress/Benefit:: Client well engaged in session and a positive participant throughout. She discussed the definition of failure with the group and it's various impacts on mental health. CLient shared that in the past failure and fear of failure has kept her from accomplishing goals and trying new things. Client benefited from the discussion challenging clients to view failure as a learning experience and reviewing past famous failures and ways they may have been able to overcome their own failures. Client was somewhat reserved during the activity portion; however, did well to maintain a willing participant. She displayed progress in her ability to apply treatment concepts to her own life and shared a personal experience regarding failure. Client recommended continued IOP to maintain stability and continue to address client use of negative or distorted thinking patterns. Eye Contact:: Fair Motor Activity:: Appropriate Appearance:: Neat Speech:: Appropriate, Other - less input provided than usual baseline Mood:: Anxious, Dysthymic Affect:: Constricted Thoughts:: Linear, Logical Staff Interventions:: Therapist facilitated discussion about fear and impact fear of failure can have. Therapist led group in an experiential activity in which client?s would fail numerous times throughout, but were given the opportunity to try again. Therapist led the processing of the activity and assisted clients with connecting how fear of failure impacted their decision making during the activity. Psychotherapy Session #3 Date Open:: 04/06/18 Time Started:: 11:21 Time Stopped:: 12:17 Targeted Problem #:: 1 Type of Group:: Functional Skills Development - 6 participants Goal of Group:: To identify the impact fear of failure has had on the group members lives and identify strategies to overcome fear of failure. Client Response/Progress/Benefit:: Client again did well to remain engaged throughout the remainder of the activity. She did well to work with her peers on managing potential failure and processing ways the strategies used in the activity may be translated to daily life. Client indicated that increasing communication and setting small goals may be helpful for her when confronted by potential failure. CLient benefitted from reviewing with the group ways in which we can learn from failure and use it as an opportunity for growth. Client recommended continued IOP to further improve consistent use of thought challenging strategies and healthy coping skills. Eye Contact:: Good Motor Activity:: Appropriate Appearance:: Neat Speech:: Appropriate Mood:: Anxious, Dysthymic Affect:: Constricted Thoughts:: Linear, Logical, No evidence of hallucinations/delusions noted Staff Interventions:: Therapist provided each group member with a worksheet to complete that asked questions about their experiences with fear of failure. Therapist led the processing of the worksheet, helping client?s connect how fear of failure has impacted them. Therapist provided support by using active listening and providing feedback.
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
--- NOTE | 2018-04-20 13:20 | BH.MTP_ITS ---
Master Treatment Plan - Patient Information Program Physician:: Dr. Huynh Primary Therapist:: Beatriz Chamberlain, [facility] - Psychiatric Diagnoses Psychiatric Diagnoses:: Major depressive disorder recurrent moderate. Anxiety unspecified. Cluster B traits Diagnosis Code(s):: F 33.1 - Estimated LOS Estimated LOS (in weeks):: 6 Problem/Goal #1 - Problem/Goal #1 Stated Goal:: Client will reduce depression, suicidal ideations and hopelessness due to Major Depressive Disorder through [facility] Services. Description of Barriers: Client's negative thinking, distorted thought patterns , grief from father's recent , stress at work, difficulty applying skills learned and suicidal ideations are all potential barriers to treatment. Functional Impact: client's worsening depression and anxiety are contributing to client having a challenging time completing her job duties as a result is behind at work. Client also not able to complete daily responsibilites at home i.e. dishes, sweeping, laundry, etc. Client not functioning at baseline. Goal Relevant Strengths/Supports: Client is intelligent, has good insight, and is motivated to get better. - Objectives Objective #1 Stated Objective: Client will identify 2-3 depressive thinking patterns and be able to challenge and replace negative thoughts. Interventions: Therapist will assist client in identifying depressive thinking patterns and provide client with resources to help teach client strategies in defeating negative thoughts. Discharge Criteria: Client will have met this objective when can identify at least two depressive thinking patterns and be able to defeat depressive and suicidal thoughts. Target Date: 04/26/18 Review Date: 04/12/18 Objective #2 Stated Objective: Client will learn and utilize 2-3 healthy coping strategies to manage mental health symptoms. Interventions: Therapist will help client develop insight into his mental health triggers and help identify strategies to help manage symptoms. Discharge Criteria: Client will have met this goal when can identify and has utilized at least 2 healthy coping strategies that help manage depressive symptoms. Target Date: 04/26/18 Review Date: 04/12/18 Problem/Goal #2 - Problem/Goal #2 Stated Goal:: Reduce overall frequency, intensity, and duration of the anxiety so that daily functioning is not impaired. Description of Barriers: Client's negative thinking, distorted thought patterns , grief from father's recent , stress at work, difficulty applying skills learned and suicidal ideations are all potential barriers to treatment. Functional Impact: client's worsening depression and anxiety are contributing to client having a challenging time completing her job duties as a result is behind at work. Client also not able to complete daily responsibilites at home i.e. dishes, sweeping, laundry, etc. Client not functioning at baseline. Goal Relevant Strengths/Supports: Client is intelligent, has good insight, and is motivated to get better. - Objectives Objective #1 Stated Objective: Client will identify 2-3 anxiety triggers and 2 coping skills to use when feeling anxious. Interventions: Therapist will help client identify her triggers and teach client various coping strategies to effectively cope with anxious symptoms. Discharge Criteria: Client will have achieved this goal when can identify at least 2 triggers, verbalize two healthy coping strategies to manage anxious symptoms. Target Date: 04/26/18 Review Date: 04/12/18
--- NOTE | 2018-05-19 15:48 | BH.NA_ITS ---
Physical Data - Height/Weight Height: 1.75 m Weight:: 105.233 kg Weight in Pounds: 232.0 lbs Current Medication Compliance - Medication Compliance Do you take your medication as prescribed?: No Do you need assistance with taking medication?: No Have you had side effects from medication?: No Nutritional History - Appetite Nutritional Instructions:: If client shows signs of a swallowing problem, weight change of 10 pounds or more in the last month, or is on a diabetic diet, the physician will review and request a dietitian consult, as appropriate. All unintentional weight loss will be referred to the physician for decision on need for dietitian consult. Additional nutritional information:: Client describes excessive caffiene intake daily. Functional Assessment - Sleep Pattern Describe any problems with sleeping: Difficulty staying asleep, daytime fatigue. - Activities Motor Activity:: Functional Sensory/Communication Assess - Hearing Problems Do you have any hearing problems?: Adequate - Communication Problems Do you have difficulty understanding what people are saying?: No Do you have trouble putting your thoughts into words or expressing what you want to say?: No Do people ever have trouble understanding what you say?: No What is your primary language?: Frisian Learning Assessment - Learning Barriers Learning Barriers:: Ready to learn Medical Problems/History - Respiratory Conditions Respiratory: Other (See comments) - FRED on CPAP therapy - Metabolic Conditions Metabolic: Hypothyroidism - Pain Assessment Do you have acute or chronic pain?: No - Female Reproductive Do you think you may be ?: No Have you reached menopause?: No Do you have any history of breast disease?: No Substance Abuse - Substance Abuse Please describe substance abuse in the last 30 days:: Client describes occassional ETOH use. Denies tobacco and illicit substance use. Mental Status Summary - Mental Status Significant Findings/Observations on Appearance and Mood:: Client is A&Ox4, cooperative with interview, and makes good eye contact. She is neatly dressed with appropriate hygiene and grooming. Speech is clear and of regular rate and volume. Mild anxiety. Normal activity. Appropriate affect. Logical associations and normal process. Average knowledge. No symptoms of delusions. Denies hallucinations and HI. She endorses intermittent SI without plan or intent. Critical judgement and true insight. Remote memory intact. Attention is good, but client notes it is fair. Good concentration during interview. Suicide Assessment - Suicidal Ideation Are you currently or have you been suicidal in the past?: Yes Suicidal Intentional Rating Scale (SIRS): Suicidal thoughts (past), Current suicidal thoughts/No plan/Contracts for safety Physician Notification: If Active suicidal thoughts/Will not contract for safety is checked, contact physician and document in the Physician Notification section below. Assault History/Potential - History of Assault Do you have a history of assaulting someone?: No Physician Notification: If yes, notify physician and document notification date and time below. Fall Risk Assessment - Age Age: Less than 60 - Mental Status Mental Status: Willing & able to ask for assistance when needed - Physical Status Physical Status: No problems - Impairments Impairments: None - Elimination Elimination: Continent AND independent - Gait or Balance Gait or Balance: Walks independently - Hx of Falls History of falls in the past 6 months: No known history RN Summary of Impressions - Impressions Recommendations: Include psychiatric and medical issues, treatment planning recommendations, and discharge planning needs. Impressions: Psychiatric Issues: MDD, borderline personality traits - Level of Care How do the client's current symptoms and functional deficits support need for this level of care?: Client describes an increase in her psychiatric symptoms for approximately 6 weeks prior to presentation. She has had fleeting SI without plan or intent, little motivation, finds no pleasure in activities, and has been having panic attacks during which she has chest pressure and SOB. Client notes that she feels overwhelmed by demands at work and home; she is having difficulty performing up to her own expectations. She also cites her mother's declining health as a source of stress. Client identifies a limited support system to help her coping with these stressors. IOP will provide social support, promote gains, and prevent further decompensation.
== END 2018-04-06 23:59 ==
LOC: BHIOP 09:00
PROVIDERS: Visit Provider Psychiatry & Neurology Psychiatry
DX: F33.1 Major depressive disorder, recurrent, moderate (principal); F41.9 Anxiety disorder, unspecified; G47.33 Obstructive sleep apnea (adult) (pediatric); G43.909 Migraine, unspecified, not intractable, without status migrainosus; Z79.899 Other long term (current) drug therapy
CPT/HCPCS: H0035; 90834; 90837; 90853

== ENCOUNTER 2018-04-10 09:00 | Outpatient (RCR) | payer OTHER, SELFPAY ==
--- NOTE | 2018-04-10 09:00 | DT_ITS ---
This patient was seen during an EMR downtime April 10, 2018 - April 17, 2018. This patient may have a combination of paper and electronic documentation or all paper documentation. All documentation is viewable within the e-chart portion of [employer] for each patient visit.
--- NOTE | 2018-04-10 15:10 | BH.SGPN ---
Service Group Progress Note - Session Psychotherapy Session #2 Date Open:: 04/10/18 Time Started:: 10:25 Time Stopped:: 11:15 Targeted Problem #:: 1 Type of Group:: Illness Management Goal of Group:: To increase understanding of pitfalls and impact can have on mental health. Client Response/Progress/Benefit:: Client contributed to discussion and listened attentively to others. Client connected with others comments about the challenges of making a change because the easier path is more comfortable despite knowing the outcome likely wont be positive. Client worked cooperatively with peers during challenge activity, recognizing importance of having self-awareness and communicating with others to help avoid falling in pitfalls. Client seemed to benefit from increasing awareness of how personal pitfalls can impact ones progress. Eye Contact:: Good Motor Activity:: Appropriate Appearance:: Neat Speech:: Appropriate Mood:: Euthymic Affect:: Congruent Thoughts:: Linear, Logical, No evidence of hallucinations/delusions noted Staff Interventions:: Therapist facilitated discussion about pitfalls and assisted group in identifying common pitfalls that can set you back. Therapist led group in an activity to help group understand impact pitfalls can have on oneself and identify strategies that could help you get back on the right path. Therapist provided support by using active listening and providing feedback. Psychotherapy Session #3 Date Open:: 04/10/18 Time Started:: 11:25 Time Stopped:: 12:15 Targeted Problem #:: 1 Type of Group:: Functional Skills Development Goal of Group:: To identify personal pitfalls and what keeps them stuck from moving forward. Client Response/Progress/Benefit:: Client active participant, listened attentively to others and contributed thoughts and ideas to discussion. Client identified her personal pitfalls to include: negative thoughts, not consistently applying healthy skills, resistance to change, comparing self to others, and being swayed by others opinions. Client stated comparing self to others and negative thinking to be the personal pitfalls that tend to happen frequently. Client reported she is willing to Client seemed to benefit from gaining awareness of her personal pitfalls as well as identifying one small step she is willing to take to keep moving forward with progress and avoid personal pitfalls. Eye Contact:: Good Motor Activity:: Appropriate Appearance:: Neat Speech:: Appropriate Mood:: Euthymic Affect:: Congruent Thoughts:: Linear, Logical, No evidence of hallucinations/delusions noted Staff Interventions:: Therapist facilitated activity in which group members were given the task to identify personal pitfalls and what keeps them stuck from moving past the pitfall. Therapist provided group members with the homework assignment of identifying strategies that can help them overcome pitfalls.
--- NOTE | 2018-04-10 15:16 | BH.SGPN ---
Service Group Progress Note - Session Psychotherapy Session #1 Date Open:: 04/10/18 Time Started:: 09:07 Time Stopped:: 10:20 Targeted Problem #:: 1 Type of Group:: Process - 9 participants Goal of Group:: The goal of today's group was to check-in with clients and review homework from previous group session. Client Response/Progress/Benefit:: Client a receptive and positive group participant. She openly provided input and supportive feedback throughout. Client discussed being a little anxious and overwhelmed today because although she had a pleasant weekend, she is feeling behind on things today. 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 She went on to share spending time with her mother and family from out of town and discussed ensuring she took several breaks throughout the busy weekend to prevent burning herself out. Client noted knowing that she will be able to accomplish the tasks she had set aside but is still struggling to combat some of the negative thoughts. She benefitted from processing her anxiety with the group and displayed progress in her ability to determine a realistic and healthy means of managing the increased stress. Recommended continued IOP to maintain stability and continue to promote use of skills learned. Eye Contact:: Good Motor Activity:: Appropriate Appearance:: Casual Speech:: Appropriate Mood:: Anxious Affect:: Congruent Thoughts:: Linear, Logical, No evidence of hallucinations/delusions noted Staff Interventions:: Therapist facilitated the group session by asking open ended questions that encouraged group members to discuss their weekend and current mood state. Assisted group members in the review of their homework from previous group session.
--- NOTE | 2018-04-12 10:17 | BH.SGPN ---
Service Group Progress Note - Session Psychotherapy Session #1 Date Open:: 04/12/18 Time Started:: 09:10 Time Stopped:: 10:05 Type of Group:: Process - 7 group members Goal of Group:: The goal of today's group was to check-in with client's mood, stressors, and positives, and review homework. Client Response/Progress/Benefit:: Active participant in group discussion. Emotion for today is hopeful. Shared with the group that she had spoken with a friend regarding all the changes which were occurring with her job as she recently learned that her employer is terminating her contract. Reports that she continues to view this as a positive and necessary change in her life. While there is still some anxiety and fear related to work she believes that she is managing this life stressor well. Reports that she has developed some goals such as completing her resume and cleaning up her house, however is struggling with taking action on these goals. Obstacles reported are related to poor self-esteem Im not as good as the other people who are going to be applying for jobs and some what if thinking. Pt is already predicting that she will not do well in interviews or in a future job. Group provided feedback and some suggestions for overcoming obstacles which pt benefited from. Progress noted as she is able to reframe negative thoughts however continues to struggle with following through with her goals which impacts her depression on a daily basis. Will continue in IOP to maintain safety, prevent decompensation, and improve daily functioning. Eye Contact:: Good Motor Activity:: Appropriate Appearance:: Casual Speech:: Appropriate Mood:: Anxious Affect:: Congruent Thoughts:: Linear, Logical, No evidence of hallucinations/delusions noted Staff Interventions:: Therapist used open-ended questions to elicit information about client's current stressors and mood state. Therapist was supportive by using active listening and reflection
--- NOTE | 2018-04-12 15:55 | BH.MDN ---
Multi-Disciplinary Note - Note 30-min Individual Time Started:: 08:40 Date: 04/12/18 Purpose of session/treatment goals addressed:: Purpose of session was to assess current symptoms and stressors. Other topics: review treatment progress and goal setting. Eye Contact:: Good Motor Activity:: Appropriate Appearance:: Neat Speech:: Appropriate Mood:: Euthymic Affect:: Congruent Thoughts:: Linear, Logical, No evidence of hallucinations/delusions noted Staff Interventions:: Therapist utilized open ended questions to elicit client's current symptoms and stressors. Therapist elicited client's thoughts about treatment progress, inquiring what would be most beneficial to focus on in session. Therapist asked client to set two small goals for the rest of week and weekend that will help her continue to move forward. Started discussion about discharge from [facility]. Provided support by active listening and validating emotions. Client Response:: Client reported she is overall feeling and doing much better. Client shared she met with one of her good friends for dinner earlier this week and shared with her friend that current employer did not renew her work contract. Client reported her friend was shocked that client was handling the news about having to get a new job very well. Client reported she is anxious about having to find a new job, however now can see her current employment has been a large source of stress because she feels more relieved now that she knows she will be officially done in June with current employer. Client shared she knows she needs to work on her resume which she has been putting off due to it being difficult talking positively about herself on the resume. Client identified her goal for the next week is to start to work on her resume and break down the cleaning of her house to one area each day. Client reported as for treatment progress she believes she is doing better with challening negative thought patterns, using healthy coping, and thinking more positive. Client shared she still struggles with following through with goals and skills on consistent basis. Client agreeable discharging from the [facility] program in two weeks would be enough time to work on those areas she feels are not quite stable enough. Risks/Concerns:: Client does not pose any risks or concerns at this time. Progress Toward Goals/Plan:: Client is demonstrating progress as evidenced by client's improved mood, challenging distorted thought patterns, and reporting decrease in depressive and anxious symptoms. Client is continuing to struggle with application of skills learned, she is able to identify a goal but has a difficult time completing the goal. Client's negative self talk is a barrier to client completing her resume due to client believe I'm not good enough. Client to continue IOP level of care to maintain gains, increase self-esteem, and prevent decompensation. Time Stopped:: 09:05
--- NOTE | 2018-04-12 16:11 | BH.TPR ---
Treatment Plan Review Date of Admission:: 03/15/18 Date of Treatment Plan Review:: 04/12/18
--- NOTE | 2018-04-12 17:14 | BH.SGPN ---
Service Group Progress Note - Session Psychotherapy Session #2 Date Open:: 04/12/18 group members Time Started:: 10:17 Time Stopped:: 11:12 Targeted Problem #:: 1 Type of Group:: Illness Management Goal of Group:: To identify within self what is keeping client trapped from achieving better quality of life. Client Response/Progress/Benefit:: Client responded well to session, participating in discussion. Client connected with the quote sharing Cristal built many layers to my piedra over the years. Client reported that there are things out of ones control that create piedra, but a persons reaction and coping can either break down piedra or add bricks. Client stated anxiety, low self-esteem, and cognitive distortions keep a person feeling trapped. Client identified negative thoughts keeping her trapped as I cant do it, what if it doesnt work out, I dont know if Ill get better, and I dont feel trying. Client shared it is important to know her negative thought patterns, but not to ruminate over them. Client appeared to benefit from gaining awareness of the thoughts keeping client from achieving mental wellness. Progress noted as client reports generalizing healthy coping skills, but can continue to benefit from mood stability. Eye Contact:: Good Motor Activity:: Appropriate Appearance:: Neat Speech:: Appropriate Mood:: Anxious Affect:: Congruent Thoughts:: Linear, Logical, No evidence of hallucinations/delusions noted Staff Interventions:: Therapist facilitated discussion about what is keeping clients stuck from moving toward mental wellness. Therapist assisted clients in connecting how thoughts can contribute to keeping clients stuck. Therapist led discussion about barriers clients face from making changes to help one move forward. Therapist provided support by using active listening and giving feedback to others. Psychotherapy Session #3 Date Open:: 04/12/18 group members Time Started:: 11:25 Time Stopped:: 12:20 Targeted Problem #:: 1 Type of Group:: Functional Skills Development Goal of Group:: To identify what client can do to release self from those things that are trapping them to find more peace and quality in everyday life. Client Response/Progress/Benefit:: Client responded well to session, active participant. Client selected I am a bad provider as the negative thought keeping her most trapped. Client shared this thought causes anxiety, self-doubt, and feeling overwhelmed at work. Client stated the thought is unrealistic because client recognizes she has helped many people. Client reframed her thought to many patients like me and so does my staff. Client stated the reframed thought would reduce anxiety and help client perform better at work. Client also helped the group identify strategies to reframe negative thinking and reports plan to write out her negative thoughts more often to challenge them. Client appeared to benefit from learning various strategies to challenge negative thinking. Client to continue IOP to prevent decompensation and increase emotional regulation skills. Eye Contact:: Good Motor Activity:: Appropriate Appearance:: Neat Speech:: Appropriate Mood:: Euthymic Affect:: Congruent Thoughts:: Linear, Logical, No evidence of hallucinations/delusions noted Staff Interventions:: Therapist used examples of maintenance cycles to help clients gain awareness of how negative thinking is keeping clients stuck. Therapist facilitated discussion about different strategies for challenging negative thoughts, assisting clients in connecting how the strategies could benefit them. Therapist provided clients with homework to focus on one thing that is keeping them stuck and identify small steps to start moving towards mental wellness.
--- NOTE | 2018-04-14 17:16 | BH.SGPN ---
Service Group Progress Note - Session Psychotherapy Session #2 Date Open:: 04/14/18 - 9 group members Time Started:: 10:30 Time Stopped:: 11:20 Targeted Problem #:: 1 Type of Group:: Illness Management Goal of Group:: The goal of this session was to increase self-awareness of what is holding them back from moving towards mental wellness and discuss importance of taking action in their treatment. Client Response/Progress/Benefit:: Client responded well to session, active participant. Client appeared to connect with the quote sharing Cristal had poor follow through for years and I know this is a problem for me. Client identified things in her life that are holding her back from moving towards mental wellness such as bad past experiences, history of poor coping skills, anxiety, depression, negative thinking, and procrastination. Client stated she wants to take back control over these stressors and symptoms because they have been dragging me down for years. Client appeared to benefit from identifying stressors and symptoms holding her back and participating in a symbolic activity. Client to continue IOP as she seems to be progressing with increasing awareness and utilizing healthy coping skills, but client can continue to benefit from coping skill maintenance and challenging negative thoughts. Eye Contact:: Good Motor Activity:: Appropriate Appearance:: Neat Speech:: Appropriate Mood:: Euthymic Affect:: Congruent Thoughts:: Linear, Logical, No evidence of hallucinations/delusions noted Staff Interventions:: Therapist facilitated discussion about what it means to take action in achieving mental health wellness. Therapist led activity in which clients were asked to identify the symptoms and things that they would like to take back control over. Therapist provided support by using active listening. Psychotherapy Session #3 Date Open:: 04/14/18 - 8 group members Time Started:: 11:30 Time Stopped:: 12:25 Targeted Problem #:: 1 Type of Group:: Functional Skills Development Goal of Group:: The goal of this session was to create a 30 day action plan that provides small goals that work towards taking action on one thing they would like to take back control over. Client Response/Progress/Benefit:: Client responded well to session, active participant. Client created a 30-day action plan to promote emotional wellness and take back control over her mental health. Client's goal for the next 30 days is no more negative self-talk. Client shared I want to be able to do what I need to do to get over the negatives. Client reported this plan will benefit client as she wants to gain more control over her self-esteem and reduce negative self-talk that leads to fear of failure and rumination. Client's steps included daily writing down positives and hanging them up, reminding herself daily of her progress, and being aware when she uses self-deprecating talk. Client appeared to benefit from identifying a 30-day goal that will improve her mental wellness. Progress noted as client reports increased mood stability and reduced anxiety, but client continues to report ongoing challenges with negative core beliefs. To continue IOP to promote gains and increase emotional regulation. Eye Contact:: Good Motor Activity:: Appropriate Appearance:: Neat Speech:: Appropriate Mood:: Euthymic Affect:: Full Thoughts:: Linear, Logical, No evidence of hallucinations/delusions noted Staff Interventions:: Therapist provided materials and guidance to help clients create a 30 day action plan. Therapist provided support by giving feedback and using active listening.
--- NOTE | 2018-04-14 17:37 | BH.SGPN ---
Service Group Progress Note - Session Psychotherapy Session #1 Date Open:: 04/14/18 Time Started:: 09:04 Time Stopped:: 10:24 Targeted Problem #:: 1 Type of Group:: Process - 8 participants Goal of Group:: The goal of today's group was to check-in with client's mood, stressors, and positives, review homework and introduce topic for the day. Client Response/Progress/Benefit:: Client responded well to session and was able to give and receive feedback throughout process discussion. Client shared plans to work on several small projects at her house this weekend so that she can keep herself feeling productive and refrain from falling into a negative mindset. CLient discussed breaking tasks down into smaller chunks so that they do not becom overwhelming. She shared continuing to try and remain positive and challege her negative thinking associated with recent job loss. CLient went on to share plans to spend time with a friend over the weekend. She benefited from continued support of the group environment and reflecting upon areas of ongoing progress. Client progressing in her ability to actively identify and challenge potential barriers or setbacks prior to them negatively impacting her functioning. Recommended continued IOP to maintain stability while client is coping with occupational related stressors and continue promoting healthy coping skill implementation. Eye Contact:: Good Motor Activity:: Appropriate Appearance:: Casual Speech:: Appropriate Mood:: Euthymic, Anxious Affect:: Congruent Thoughts:: Linear, Logical, No evidence of hallucinations/delusions noted Staff Interventions:: Therapist used open-ended questions to elicit information about client's current stressors and mood state. Therapist was supportive by using active listening and reflection.
--- NOTE | 2018-04-17 14:52 | BH.SGPN ---
Service Group Progress Note - Session Psychotherapy Session #1 Date Open:: 04/17/18 - 8 group members Time Started:: 09:04 Time Stopped:: 10:02 Targeted Problem #:: 1 Type of Group:: Process Goal of Group:: The goal of today's group was to check-in with client's mood, stressors, and positives, and introduce topic for the day. Client Response/Progress/Benefit:: Client responded well to session, providing supportive statements to peers. Client reports feeling confident with a touch of anxiety today as client has been seeing progress, but recognizes her time in IOP is coming to an end. Client shared the weekend was good, client spent time with a friend and finished several projects. Client reported she reviewed her IOP binder and realized I'm getting complacent with the progress client has made. Client shared she is beginning to challenge complacency by focusing more on challenging negative self-talk and being mindful. Client appeared to benefit from processing anxious feelings and identifying progress. Client to continue IOP to promote gains and increase mood stability. Eye Contact:: Good Motor Activity:: Appropriate Appearance:: Neat Speech:: Appropriate Mood:: Euthymic Affect:: Full Thoughts:: Linear, No evidence of hallucinations/delusions noted Staff Interventions:: Therapist used open-ended questions to elicit information about client's current stressors and mood state. Therapist was supportive by using active listening and reflection.
--- NOTE | 2018-04-17 15:12 | BH.SGPN_ITS ---
Service Group Progress Note - Session Psychotherapy Session #2 Date Open:: 04/10/18 Time Started:: 10:25 Time Stopped:: 11:15 Targeted Problem #:: 1 Type of Group:: Illness Management Goal of Group:: To increase understanding of pitfalls and impact can have on mental health. Client Response/Progress/Benefit:: Client contributed to discussion and listened attentively to others. Client connected with other?s comments about the challenges of making a change because the easier path is more comfortable despite knowing the outcome likely won?t be positive. Client worked cooperatively with peers during challenge activity, recognizing importance of having self-awareness and communicating with others to help avoid falling in pitfalls. Client seemed to benefit from increasing awareness of how personal pitfalls can impact one?s progress. Eye Contact:: Good Motor Activity:: Appropriate Appearance:: Neat Speech:: Appropriate Mood:: Euthymic Affect:: Congruent Thoughts:: Linear, Logical, No evidence of hallucinations/delusions noted Staff Interventions:: Therapist facilitated discussion about pitfalls and assisted group in identifying common pitfalls that can set you back. Therapist led group in an activity to help group understand impact pitfalls can have on oneself and identify strategies that could help you get back on the right path. Therapist provided support by using active listening and providing feedback. Psychotherapy Session #3 Date Open:: 04/10/18 Time Started:: 11:25 Time Stopped:: 12:15 Targeted Problem #:: 1 Type of Group:: Functional Skills Development Goal of Group:: To identify personal pitfalls and what keeps them stuck from moving forward. Client Response/Progress/Benefit:: Client active participant, listened attentively to others and contributed thoughts and ideas to discussion. Client identified her personal pitfalls to include: negative thoughts, not consistently applying healthy skills, resistance to change, comparing self to others, and being swayed by other?s opinions. Client stated comparing self to others and negative thinking to be the personal pitfalls that tend to happen frequently. Client reported she is willing to Client seemed to benefit from gaining awareness of her personal pitfalls as well as identifying one small step she is willing to take to keep moving forward with progress and avoid personal pitfalls. Eye Contact:: Good Motor Activity:: Appropriate Appearance:: Neat Speech:: Appropriate Mood:: Euthymic Affect:: Congruent Thoughts:: Linear, Logical, No evidence of hallucinations/delusions noted Staff Interventions:: Therapist facilitated activity in which group members were given the task to identify personal pitfalls and what keeps them stuck from moving past the pitfall. Therapist provided group members with the homework assignment of identifying strategies that can help them overcome pitfalls.
--- NOTE | 2018-04-17 17:07 | BH.SGPN ---
Service Group Progress Note - Session Psychotherapy Session #2 Date Open:: 04/17/18 Time Started:: 10:15 Time Stopped:: 11:10 Targeted Problem #:: 1 Type of Group:: Illness Management Goal of Group:: To increase understanding and awareness of emotions connected to change and the impact those emotions can have on change. Client Response/Progress/Benefit:: Client was active participate as evidenced by many contributions during discussion and listened attentively to others. Client connected with others comments about the challenges of making a change. She agreed with the quote that there will never be a right time to make a change because often a person can come up with a reason to not do something. Client connected with the change process. Seemed to benefit from recognizing that when she is in the middle of a change her ability to perform decreases which she was able to connect to given recent changes she has been making and not being able to perform as she used to. Client demonstrating progress as evidenced by reporting decreased depressive and anxiety symptoms as well as utilization of healthy skills a more consistent basis. Client to continue IOP to maintain progress, prevent decompensation, and stabilize mood. Eye Contact:: Good Motor Activity:: Appropriate Appearance:: Neat Speech:: Appropriate Mood:: Euthymic Affect:: Congruent Thoughts:: Linear, Logical, No evidence of hallucinations/delusions noted Staff Interventions:: Therapist facilitated group discussion about change. Therapist led the group in an activity in which the activity was utilized as a tool to increase clients awareness of emotions connected with change. Therapist led the processing of how each emotion was connected with change. Therapist provided psychoeducation process of change, helped group members apply it to their life. Therapist was supportive by providing feedback and using reflective listening. Psychotherapy Session #3 Date Open:: 04/17/18 Time Started:: 11:20 Time Stopped:: 12:15 Targeted Problem #:: 1 Type of Group:: Functional Skills Development Goal of Group:: To identify the challenges associated with making change and identify positive outcomes that have resulted from changes made in past. Client Response/Progress/Benefit:: Client cuspid positively discussion and listened attentively to others. During challenge activity client worked cooperatively with peers, contributing her thoughts and ideas. When processing activity client connected that she is unpredictable and one has to be willing to utilize supports to help with managing change. Client identify one small change she is going to make a daily basis is to take 15 minutes per day for a walk. Client seemed to benefit from the group discussing various strategies to help follow through with an identified change. Eye Contact:: Good Motor Activity:: Appropriate Appearance:: Neat Speech:: Appropriate Mood:: Euthymic Affect:: Congruent Thoughts:: Linear, Logical, No evidence of hallucinations/delusions noted Staff Interventions:: Therapist led group in an activity to help group members recognize the challenges associated with change. Therapist utilized activity as a tool to identify ways to manage changes and adapt to the challenges that ensue. Therapist facilitated group discussion about positive outcomes from change.
--- NOTE | 2018-04-18 10:21 | BH.SGPN_ITS ---
Service Group Progress Note - Session Psychotherapy Session #1 Date Open:: 04/12/18 Time Started:: 09:10 Time Stopped:: 10:05 Type of Group:: Process - 7 group members Goal of Group:: The goal of today's group was to check-in with client's mood, stressors, and positives, and review homework. Client Response/Progress/Benefit:: Active participant in group discussion. Emotion for today is ?hopeful?. Shared with the group that she had spoken with a friend regarding all the changes which were occurring with her job as she recently learned that her employer is terminating her contract. Reports that she continues to view this as a positive and necessary change in her life. While there is still some anxiety and fear related to work she believes that she is managing this life stressor well. Reports that she has developed some goals such as completing her resume and cleaning up her house, however is struggling with taking action on these goals. Obstacles reported are related to poor self-esteem ?I?m not as good as the other people who are going to be applying for jobs? and some ?what if? thinking. Pt is already predicting that she will not do well in interviews or in a future job. Group provided feedback and some suggestions for overcoming obstacles which pt benefited from. Progress noted as she is able to reframe negative thoughts however continues to struggle with following through with her goals which impacts her depression on a daily basis. Will continue in IOP to maintain safety, prevent decompensation, and improve daily functioning. Eye Contact:: Good Motor Activity:: Appropriate Appearance:: Casual Speech:: Appropriate Mood:: Anxious Affect:: Congruent Thoughts:: Linear, Logical, No evidence of hallucinations/delusions noted Staff Interventions:: Therapist used open-ended questions to elicit information about client's current stressors and mood state. Therapist was supportive by using active listening and reflection
--- NOTE | 2018-04-18 17:16 | BH.SGPN_ITS ---
Service Group Progress Note - Session Psychotherapy Session #2 Date Open:: 04/12/18 group members Time Started:: 10:17 Time Stopped:: 11:12 Targeted Problem #:: 1 Type of Group:: Illness Management Goal of Group:: To identify within self what is keeping client trapped from achieving better quality of life. Client Response/Progress/Benefit:: Client responded well to session, participating in discussion. Client connected with the quote sharing I?ve built many layers to my piedra over the years. Client reported that there are things out of one?s control that create ?piedra,? but a person?s reaction and coping can either break down piedra or add bricks. Client stated anxiety, low self-esteem, and cognitive distortions keep a person feeling trapped. Client identified negative thoughts keeping her trapped as ?I can?t do it, what if it doesn?t work out, I don?t know if I?ll get better, and I don?t feel trying.? Client shared it is important to know her negative thought patterns, but not to ruminate over them. Client appeared to benefit from gaining awareness of the thoughts keeping client from achieving mental wellness. Progress noted as client reports generalizing healthy coping skills, but can continue to benefit from mood stability. Eye Contact:: Good Motor Activity:: Appropriate Appearance:: Neat Speech:: Appropriate Mood:: Anxious Affect:: Congruent Thoughts:: Linear, Logical, No evidence of hallucinations/delusions noted Staff Interventions:: Therapist facilitated discussion about what is keeping client?s stuck from moving toward mental wellness. Therapist assisted clients in connecting how thoughts can contribute to keeping clients stuck. Therapist led discussion about barriers clients face from making changes to help one move forward. Therapist provided support by using active listening and giving feedback to others. Psychotherapy Session #3 Date Open:: 04/12/18 8 group members Time Started:: 11:25 Time Stopped:: 12:20 Targeted Problem #:: 1 Type of Group:: Functional Skills Development Goal of Group:: To identify what client can do to release self from those things that are trapping them to find more peace and quality in everyday life. Client Response/Progress/Benefit:: Client responded well to session, active participant. Client selected I am a bad provider as the negative thought keeping her most trapped. Client shared this thought causes anxiety, self-doubt , and feeling overwhelmed at work. Client stated the thought is unrealistic because client recognizes she has helped many people. Client reframed her thought to many patients like me and so does my staff.? Client stated the reframed thought would reduce anxiety and help client perform better at work. Client also helped the group identify strategies to reframe negative thinking and reports plan to write out her negative thoughts more often to challenge them. Client appeared to benefit from learning various strategies to challenge negative thinking. Client to continue IOP to prevent decompensation and increase emotional regulation skills. Eye Contact:: Good Motor Activity:: Appropriate Appearance:: Neat Speech:: Appropriate Mood:: Euthymic Affect:: Congruent Thoughts:: Linear, Logical, No evidence of hallucinations/delusions noted Staff Interventions:: Therapist used examples of maintenance cycles to help clients gain awareness of how negative thinking is keeping clients stuck. Therapist facilitated discussion about different strategies for challenging negative thoughts, assisting clients in connecting how the strategies could benefit them. Therapist provided clients with homework to focus on one thing that is keeping them stuck and identify small steps to start moving towards mental wellness.
--- NOTE | 2018-04-18 17:17 | BH.SGPN_ITS ---
Service Group Progress Note - Session Psychotherapy Session #2 Date Open:: 04/14/18 - 9 group members Time Started:: 10:30 Time Stopped:: 11:20 Targeted Problem #:: 1 Type of Group:: Illness Management Goal of Group:: The goal of this session was to increase self-awareness of what is holding them back from moving towards mental wellness and discuss importance of taking action in their treatment. Client Response/Progress/Benefit:: Client responded well to session, active participant. Client appeared to connect with the quote sharing ?I?ve had poor follow through for years and I know this is a problem for me.? Client identified things in her life that are holding her back from moving towards mental wellness such as bad past experiences, history of poor coping skills, anxiety, depression, negative thinking, and procrastination. Client stated she wants to take back control over these stressors and symptoms because ?they have been dragging me down for years.? Client appeared to benefit from identifying stressors and symptoms holding her back and participating in a symbolic activity. Client to continue IOP as she seems to be progressing with increasing awareness and utilizing healthy coping skills, but client can continue to benefit from coping skill maintenance and challenging negative thoughts. Eye Contact:: Good Motor Activity:: Appropriate Appearance:: Neat Speech:: Appropriate Mood:: Euthymic Affect:: Congruent Thoughts:: Linear, Logical, No evidence of hallucinations/delusions noted Staff Interventions:: Therapist facilitated discussion about what it means to take action in achieving mental health wellness. Therapist led activity in which clients were asked to identify the symptoms and things that they would like to take back control over. Therapist provided support by using active listening. Psychotherapy Session #3 Date Open:: 04/14/18 - 8 group members Time Started:: 11:30 Time Stopped:: 12:25 Targeted Problem #:: 1 Type of Group:: Functional Skills Development Goal of Group:: The goal of this session was to create a 30 day action plan that provides small goals that work towards taking action on one thing they would like to take back control over. Client Response/Progress/Benefit:: Client responded well to session, active participant. Client created a 30-day action plan to promote emotional wellness and take back control over her mental health. Client's goal for the next 30 days is no more negative self-talk. Client shared ?I want to be able to do what I need to do to get over the negatives.? Client reported this plan will benefit client as she wants to gain more control over her self-esteem and reduce negative self-talk that leads to fear of failure and rumination. Client's steps included daily writing down positives and hanging them up, reminding herself daily of her progress, and being aware when she uses self-deprecating talk. Client appeared to benefit from identifying a 30-day goal that will improve her mental wellness. Progress noted as client reports increased mood stability and reduced anxiety, but client continues to report ongoing challenges with negative core beliefs. To continue IOP to promote gains and increase emotional regulation. Eye Contact:: Good Motor Activity:: Appropriate Appearance:: Neat Speech:: Appropriate Mood:: Euthymic Affect:: Full Thoughts:: Linear, Logical, No evidence of hallucinations/delusions noted Staff Interventions:: Therapist provided materials and guidance to help clients create a 30 day action plan. Therapist provided support by giving feedback and using active listening.
--- NOTE | 2018-04-19 11:25 | BH.SGPN ---
Service Group Progress Note - Session Psychotherapy Session #1 Date Open:: 04/19/18 Time Started:: 09:05 Time Stopped:: 10:17 Targeted Problem #:: 1 Type of Group:: Process - 7 participants Goal of Group:: The goal of today's group was to check-in with clients and review homework from previous group session. Client Response/Progress/Benefit:: Client responded well to session and was actively engaged throughout. She provided input and positive feedback to fellow participants as a shared with the group. Client indicated feeling pleased today yesterday had been her first day back at work and this had been a positive experience. Client discussed her coworkers being very supportive of her return to work and that the day has gone better than expected. She went on to discuss being able to bring her dog over and spending time with him near the end of the workday. Client benefited from identifying what had allowed her to remain calm and continue to make progress during this change in routine. Client indicated that continuing to actively apply coping skills such as taking regular walks and challenging negative thoughts has helped most. Client recommended continued IOP in order to prevent decompensation as client returns to work. Eye Contact:: Good Motor Activity:: Appropriate Appearance:: Casual Speech:: Appropriate Mood:: Euthymic Affect:: Congruent Thoughts:: Linear, Logical, No evidence of hallucinations/delusions noted Staff Interventions:: Therapeutic Interventions: Therapist facilitated the group session by asking open ended questions that encouraged group members to discuss their weekend and current mood state. Assisted group members in the review of their homework from previous group session.
--- NOTE | 2018-04-19 14:21 | BH.SGPN ---
Service Group Progress Note - Session Psychotherapy Session #2 Date Open:: 04/19/18 Time Started:: 10:25 Time Stopped:: 11:15 Targeted Problem #:: 1 Type of Group:: Illness Management Goal of Group:: To increase understanding how positive and negative forces in life can impact balance in life. Client Response/Progress/Benefit:: client active participant, contributed positive positively to discussion and listened attentively to others. When processing the quote client agreed with others that personal growth does not just occur overnight, there are a lot of different factors and forces that contribute to personal growth. Client seemed to benefit from increasing awareness of what can help with moving towards progress. Eye Contact:: Good Motor Activity:: Appropriate Appearance:: Neat Speech:: Appropriate Mood:: Euthymic Affect:: Congruent Thoughts:: Linear, Logical, No evidence of hallucinations/delusions noted Staff Interventions:: Therapist facilitated group discussion about the various forces of life and helped clients connect the impact they have on balance in life. Therapist led group in an experiential activity in which group members had to work together to balance an object and move it to a designated location. Therapist utilized the activity as a tool to process the challenges connected with balancing various forces. Psychotherapy Session #3 Date Open:: 04/19/18 Time Started:: 11:22 Time Stopped:: 12:15 Targeted Problem #:: 1 Type of Group:: Functional Skills Development Goal of Group:: To identify positive and negative forces in life and identify which forces are helping stability and which forces are contributing to instability. Client Response/Progress/Benefit:: Client contributed positively discussion, worked cooperatively with peers, and listened attentively to others. When processing group activity client identified listening to others' ideas and working as a team were strategies that help the group be successful with managing the various negative forces that the experience. Client identified for herself positive forces include: Family and friends, positive affirmations, exercise, mindfulness, being open-minded, and nurys. Client shared her negative forces to include negative self talk, past experiences, losing focus, frustration, and fear of failure. Client identified positive affirmations and her nurys to be the most impactful forces currently in her life which are helping her feel more stable in daily life. Client reported she knows there is additional work to do to feel more stable on a consistent basis but is recognizing there is progress. Client seemed to benefit from increasing awareness of her positive and negative forces. Demonstrating progress as evidenced by client reporting decrease in depressive symptoms and increase in stability. Eye Contact:: Good Motor Activity:: Appropriate Appearance:: Casual Speech:: Appropriate Mood:: Euthymic Affect:: Congruent Thoughts:: Linear, Logical, No evidence of hallucinations/delusions noted Staff Interventions:: Therapist provided group with an example of a scenario of a person and the individuals positive and negative forces. Therapist provided each group member with a worksheet in which they were to identify five positive and five negative forces in their life. Therapist processed the activity with the group, helping others connect the impact certain forces have on their life balance.
--- NOTE | 2018-04-21 13:23 | BH.MDN ---
Multi-Disciplinary Note - Note 30-min Individual Time Started:: 12:10 Date: 04/21/18 Purpose of session/treatment goals addressed:: Purpose of session was to assess current symptoms and stressors. Other topics included: maintenace plan, Eye Contact:: Good Motor Activity:: Appropriate Appearance:: Casual Speech:: Appropriate Mood:: Euthymic Affect:: Full Thoughts:: Linear, Logical, No evidence of hallucinations/delusions noted Staff Interventions:: Therapist used open ended questions to elicit client's current thoughts and symptoms. Therapist reviewed maintenance of progress plan with client, assiting client with identifying other strateiges to utilize on a daily, weekly and monthly time frame. Therapist provided homework for client to identify progress made since starting IOP as well as additional strategies to utilize that will help her maintain progress. Client Response:: Client reported she is continuing to do really well even with being back to work part-time. Client shared she has been able to catch up signficantly on her documentation that she was behind on which makes her feel relieved and decreased anxiety. Client reported with co-workers she has had conflicts with in the past that she is now focusing on being positive and not getting involved in any office drama. Client shared she has noticed some of the co-workers she thought didn't like her are being really nice to her now that her contract is up in a couple of months. Client reported perhaps her negativity and distorted thinking clouded her evaluation of others. Client shared she plans to work on finishing her resume this weekend so she can start to apply for jobs in the next week or two. Client identified feeling anxious when starts to think about having interviews, but is able to reframe her thought to make herself be in the current moment instead of worrying about what might happen. Client reported for her maintenace plan on a daily basis she needs to: do positive affirmations, maintain schedule, and be active. Client shared on a weekly basis she will continue to set and evaluate SMART goals and spend time with friends. Client reported on a monthly basis she will reread information from IOP binder and evaluate how her month went with positives and possible improvements for following month. Client reported feeling anxious about being done with IOP next week, but recognizes she does have the skills to help her maintain success. Risks/Concerns:: Client does not present any risks or concerns at this time. Progress Toward Goals/Plan:: Client demonstrating treatment progress as evidenced by reporting decrease in both anxious and depressive symptoms. Client is utilizing healthy skills on a consistent basis, challenging negative thought patterns, and is following through with applying skills learned. Plan is for client to discharge from IOP next week. Client agreeable to schedule with her outpatient counselor and psychiatrist for after she completes IOP. Time Stopped:: 12:40
--- NOTE | 2018-04-21 14:03 | BH.SGPN ---
Service Group Progress Note - Session Psychotherapy Session #1 Date Open:: 04/21/18 - 6 group members Time Started:: 09:05 Time Stopped:: 10:00 Targeted Problem #:: 1 Type of Group:: Process Goal of Group:: The goal of today's group was to check-in with client's mood, stressors, and positives and introduce topic for the day. Client Response/Progress/Benefit:: Client responded well to session, providing supportive statements to peers. Client reports feeling pleased and a little anxious today as client acknowledges the progress she has made while in [facility], but is nervous about discharging next week. 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 Client shared it has been going well as most of her coworkers have been supportive. Client reported she continues to have negative thoughts and has to deal with difficult people, but client has been working on challenging her thinking and reminding herself not everything is my problem. Client appeared to benefit from reflecting on progress and identifying ways to maintain mood stability when she discharges. Progress noted as evidenced by improved mood and reduced intensity of mental health symptoms. Client to discharge next week from [facility]. Eye Contact:: Good Motor Activity:: Appropriate Appearance:: Neat Speech:: Appropriate Mood:: Euthymic, Anxious Affect:: Constricted Thoughts:: Linear, No evidence of hallucinations/delusions noted Staff Interventions:: Therapist used open-ended questions to elicit information about client's current stressors and mood state. Therapist was supportive by using active listening and providing feedback.
--- NOTE | 2018-04-24 10:55 | BH.SGPN ---
Service Group Progress Note - Session Psychotherapy Session #1 Date Open:: 04/24/18 Time Started:: 09:10 Time Stopped:: 10:10 Type of Group:: Process - 8 group members Goal of Group:: The goal of today's group was to check-in with client's mood, stressors, and positives, and review homework. Client Response/Progress/Benefit:: Pt was an acitve participant in group discussion. Shared with the group that today is her last day in IOP. Emotion for today is happy. Feels that she is much better than when she started stating that she is managing her ability to reframe her thoughts which has been beneficial to her MH symptoms. Has significantly increased her coping skills, goal-directed behaviors, and has begun to participate more in self-care. She discussed some of the group that she found to be helpful. Progress noted AEB pt report. Pt will be discharged today. Eye Contact:: Good Motor Activity:: Appropriate Appearance:: Neat Speech:: Appropriate Mood:: Euthymic Affect:: Full, Bright Thoughts:: Linear, Logical, No evidence of hallucinations/delusions noted Staff Interventions:: Therapist used open-ended questions to elicit information about client's current stressors and mood state. Therapist was supportive by using active listening and reflection.
--- NOTE | 2018-04-24 11:56 | BH.MDN_ITS ---
Multi-Disciplinary Note - Note 30-min Individual Time Started:: 08:40 Date: 04/12/18 Purpose of session/treatment goals addressed:: Purpose of session was to assess current symptoms and stressors. Other topics: review treatment progress and goal setting. Eye Contact:: Good Motor Activity:: Appropriate Appearance:: Neat Speech:: Appropriate Mood:: Euthymic Affect:: Congruent Thoughts:: Linear, Logical, No evidence of hallucinations/delusions noted Staff Interventions:: Therapist utilized open ended questions to elicit client' s current symptoms and stressors. Therapist elicited client's thoughts about treatment progress, inquiring what would be most beneficial to focus on in session. Therapist asked client to set two small goals for the rest of week and weekend that will help her continue to move forward. Started discussion about discharge from [facility]. Provided support by active listening and validating emotions. Client Response:: Client reported she is overall feeling and doing much better. Client shared she met with one of her good friends for dinner earlier this week and shared with her friend that current employer did not renew her work contract. Client reported her friend was shocked that client was handling the news about having to get a new job very well. Client reported she is anxious about having to find a new job, however now can see her current employment has been a large source of stress because she feels more relieved now that she knows she will be officially done in June with current employer. Client shared she knows she needs to work on her resume which she has been putting off due to it being difficult talking positively about herself on the resume. Client identified her goal for the next week is to start to work on her resume and break down the cleaning of her house to one area each day. Client reported as for treatment progress she believes she is doing better with challening negative thought patterns, using healthy coping, and thinking more positive. Client shared she still struggles with following through with goals and skills on consistent basis. Client agreeable discharging from the [facility] program in two weeks would be enough time to work on those areas she feels are not quite stable enough. Risks/Concerns:: Client does not pose any risks or concerns at this time. Progress Toward Goals/Plan:: Client is demonstrating progress as evidenced by client's improved mood, challenging distorted thought patterns, and reporting decrease in depressive and anxious symptoms. Client is continuing to struggle with application of skills learned, she is able to identify a goal but has a difficult time completing the goal. Client's negative self talk is a barrier to client completing her resume due to client believe I'm not good enough. Client to continue IOP level of care to maintain gains, increase self-esteem, and prevent decompensation. Time Stopped:: 09:05
--- NOTE | 2018-04-24 11:56 | BH.AFTERPLAN ---
Aftercare Plan - Demographics Treatment End Date:: 04/24/18 Psychiatrist:: Marion Huynh Psychiatrist Office #:: [phone] [facility]/IOP Therapist:: Beatriz Chamberlain Therapist Phone #:: [phone] - Medications Home Medications: Home Medications Biotin 5,000 mcg PO DAILY 03/17/18 Cholecalciferol (Vitamin D3) [Vitamin D3] 2,000 unit PO DAILY 03/17/18 Fluconazole [Diflucan] 100 mg PO DAILY PRN 03/17/18 Fluoxetine [Prozac] 40 mg PO DAILY 03/17/18 Levocetirizine Dihydrochloride [Xyzal] 5 mg PO DAILY 03/17/18 Levothyroxine [Synthroid] 75 mcg PO DAILY 03/17/18 Montelukast [Singulair] 10 mg PO DAILY 03/17/18 Naproxen Sodium [Aleve] 220 mg PO Q12H PRN PRN 03/17/18 Propranolol HCl [Inderal] 10 mg PO BID 03/17/18 Tramadol HCl [Ultram] 50 mg PO DAILY PRN 03/17/18 buPROPion XL [Wellbutrin Xl] 150 mg PO DAILY 03/17/18 - Plan Details Progress/Aftercare Plan Details:: You have demonstrated progress with overall decrease in both depressive and anxious symptoms. You are consistently challenging and reframing negative or distorted thought patterns. You consistently utilize the healthy coping strategies that have been taught to you. You have focused on creating SMART goals instead of setting self up for failure by setting goals that are unrealistic and unobtainable. The progress you have made can be attributed to the effort you've made to utilize the tools and strategies that have been taught while in the program. Remember the importance to keep up with the strategies and coping skills you have found to be most helpful, even on those days you feel better. Continue to follow up with your outpatient counselor and outpatient psychiatry to help maintain progress. Strategies for Success:: 1. Continue to be aware of cognitive distortions and reframe distorted thought patterns in the moment. 2. Daily positive affirmations will continue to help improve self-esteem and confidence. 3. Setting SMART goals on daily and weekly basis. 4. Set boundaries!! Boundaries are hector to set with others and yourself. Don't let the retail therapy sneak back in - set limits for yourself. 5. Communicate to your supports what you need - no one can read your mind. 6. Remember to look at and for the positives! It could be helpful to end each day with identifying 3 positives from the day. When we focus on the positive it will become easier to see the positive. 7. Take time each day to be mindful - power of being in the here and now! 8. Review IOP binder when need refresh of skills. 9. Follow maintain progress plan to remember what you can do on a daily, weekly, monthly and peroidic basis. 10. Remember to give yourself credit on the progress and accomplishments you make :). 11. Radial acceptance!! - Appointments Appointments/Referrals to Other Services:: 1. Dr. Duque for psychiatry week of May 15. 2. Ana at [facility] for counseling on 05/17/18.
--- NOTE | 2018-04-24 12:41 | BH.IGGP_ITS ---
Aftercare Plan - Demographics Treatment End Date:: 04/24/18 Psychiatrist:: Marion Huynh Psychiatrist Office #:: [phone] [facility]/IOP Therapist:: Beatriz Chamberlain Therapist Phone #:: [phone] - Medications Home Medications: Home Medications Biotin 5,000 mcg PO DAILY 03/17/18 Cholecalciferol (Vitamin D3) [Vitamin D3] 2,000 unit PO DAILY 03/17/18 Fluconazole [Diflucan] 100 mg PO DAILY PRN 03/17/18 Fluoxetine [Prozac] 40 mg PO DAILY 03/17/18 Levocetirizine Dihydrochloride [Xyzal] 5 mg PO DAILY 03/17/18 Levothyroxine [Synthroid] 75 mcg PO DAILY 03/17/18 Montelukast [Singulair] 10 mg PO DAILY 03/17/18 Naproxen Sodium [Aleve] 220 mg PO Q12H PRN PRN 03/17/18 Propranolol HCl [Inderal] 10 mg PO BID 03/17/18 Tramadol HCl [Ultram] 50 mg PO DAILY PRN 03/17/18 buPROPion XL [Wellbutrin Xl] 150 mg PO DAILY 03/17/18 - Plan Details Progress/Aftercare Plan Details:: You have demonstrated progress with overall decrease in both depressive and anxious symptoms. You are consistently challenging and reframing negative or distorted thought patterns. You consistently utilize the healthy coping strategies that have been taught to you. You have focused on creating SMART goals instead of setting self up for failure by setting goals that are unrealistic and unobtainable. The progress you have made can be attributed to the effort you've made to utilize the tools and strategies that have been taught while in the program. Remember the importance to keep up with the strategies and coping skills you have found to be most helpful, even on those days you feel better. Continue to follow up with your outpatient counselor and outpatient psychiatry to help maintain progress. Strategies for Success:: 1. Continue to be aware of cognitive distortions and reframe distorted thought patterns in the moment. 2. Daily positive affirmations will continue to help improve self-esteem and confidence. 3. Setting SMART goals on daily and weekly basis. 4. Set boundaries!! Boundaries are hector to set with others and yourself. Don't let the retail therapy sneak back in - set limits for yourself. 5. Communicate to your supports what you need - no one can read your mind. 6. Remember to look at and for the positives ! It could be helpful to end each day with identifying 3 positives from the day. When we focus on the positive it will become easier to see the positive. 7. Take time each day to be mindful - power of being in the here and now! 8. Review IOP binder when need refresh of skills. 9. Follow maintain progress plan to remember what you can do on a daily, weekly, monthly and peroidic basis. 10. Remember to give yourself credit on the progress and accomplishments you make :). 11. Radial acceptance!! - Appointments Appointments/Referrals to Other Services:: 1. Dr. Duque for psychiatry week of May 15. 2. Ana at [facility] for counseling on 05/17/18.
--- NOTE | 2018-04-24 12:43 | BH.DS ---
Discharge Summary - Demographics Date of Admission:: 03/15/18 Discharge Date: 04/24/18 Presenting Problems at Admission:: Pt presented to treatment for worsening depression and anxiety. Pt's mental health symptoms were progressively worsening over the past few months. At admission depression and anxiety were affecting her home and work functioning. She endorsed a depressed mood with feelings of sadness, anhedonia, decreased energy and difficulty concentrating. Discharge Diagnoses:: Major depressive disorder recurrent moderate F 33.1. Anxiety unspecified. Cluster B traits Reason for Discharge:: Client has made signficant progress on her treatment goals and no longer meets medical necessity for IOP level of care. - Treatment Progress During Treatment & Response: Client has demonstrated progress with overall decrease in both depressive and anxious symptoms. Client is consistently challenging and reframing negative or distorted thought patterns. Client is consistently utilizing the healthy coping strategies that have been taught to you. Client is focused on creating SMART goals. 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 Client responded positively to treatment as evidenced by her engagement in both group and individual sessions, contributing positively to discussions and applying skills learned to everyday life. Issues Still to be Addressed:: Client could benefit from continued reinforcement of healthy skills learned. Continuing to work on increasing self-esteem, confidence and challenging negative thought patterns. Discharge Recommendations/Instructions:: Client is recommended to follow up with already established outpatient counselor at [facility] as well as outpatient psychiatrist, Dr. Duque, at [facility]. Client encouraged to return to DBT group for additional support and reinforcement of skills. Discharge Handout: Complete Discharge Handout with client on aftercare options and continuity of care.
--- NOTE | 2018-04-24 14:27 | BH.DS_ITS ---
Discharge Summary - Demographics Date of Admission:: 03/15/18 Discharge Date: 04/24/18 Presenting Problems at Admission:: Pt presented to treatment for worsening depression and anxiety. Pt's mental health symptoms were progressively worsening over the past few months. At admission depression and anxiety were affecting her home and work functioning. She endorsed a depressed mood with feelings of sadness, anhedonia, decreased energy and difficulty concentrating. Discharge Diagnoses:: Major depressive disorder recurrent moderate F 33.1. Anxiety unspecified. Cluster B traits Reason for Discharge:: Client has made signficant progress on her treatment goals and no longer meets medical necessity for IOP level of care. - Treatment Progress During Treatment & Response: Client has demonstrated progress with overall decrease in both depressive and anxious symptoms. Client is consistently challenging and reframing negative or distorted thought patterns. Client is consistently utilizing the healthy coping strategies that have been taught to you. Client is focused on creating SMART goals. 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 Client responded positively to treatment as evidenced by her engagement in both group and individual sessions, contributing positively to discussions and applying skills learned to everyday life. Issues Still to be Addressed:: Client could benefit from continued reinforcement of healthy skills learned. Continuing to work on increasing self- esteem, confidence and challenging negative thought patterns. Discharge Recommendations/Instructions:: Client is recommended to follow up with already established outpatient counselor at [facility] as well as outpatient psychiatrist, Dr. Duque, at [facility]. Client encouraged to return to DBT group for additional support and reinforcement of skills. Discharge Handout: Complete Discharge Handout with client on aftercare options and continuity of care.
--- NOTE | 2018-04-24 14:27 | BH.MDN ---
Multi-Disciplinary Note - Note 30-min Individual Time Started:: 12:25 Date: 04/24/18 Purpose of session/treatment goals addressed:: Purpose of session was to review treatment progress and solidfy aftercare post dicharge. Eye Contact:: Good Motor Activity:: Appropriate Appearance:: Neat Speech:: Appropriate Mood:: Euthymic, Anxious Affect:: Full Thoughts:: Linear, Logical, No evidence of hallucinations/delusions noted Staff Interventions:: Therapist utilized open ended questions to elicit client's thoughts about treatment progress since entering [facility]. Therapist elicited client's thought on which strategies and skills would be most beneficial for client to continue doing in order to maintain success. Therapist discussed current aftercare plans. Provided support by validating emotions. Provided aftercare plan with progress, strategies for success, and appointment days for aftercare providers. Client Response:: Client reported she is feeling happy, but yet anxious to be done with [facility] today. Client shared she really enjoyed coming to [facility] and will miss all the support that was provided to her throughout. Client shared she has seen lots of progress in herself with being able to radically accept various aspects in her life and see things in a more positive light. Client reported challening her negative mindset has really helped her see more positive throughout the days. Client shared completing positive affirmations on a daily basis has contributed to increased self esteem and confidence. Client reported she is feeling able to perform to an ability she hasn't been able to in a long time. Recognized she needed to start coping in a different way then she has for the past few years. Client agreeable to follow up with already established outpatient counselor and psychiatrist. Client agreeable with aftercare plan. Risks/Concerns:: Client does not present any risks or concerns at this time. Progress Toward Goals/Plan:: Client has demonstrated progress with overall decrease in both depressive and anxious symptoms. Client is consistently challenging and reframing negative or distorted thought patterns. Client is consistently utilizing the healthy coping strategies that have been taught to you. Client is focused on creating SMART goals. 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 Plan is for client to discharge from [facility] level of care today and follow up with aftercare plan. Time Stopped:: 12:50
--- NOTE | 2018-04-24 14:29 | BH.SGPN_ITS ---
Service Group Progress Note - Session Psychotherapy Session #2 Date Open:: 04/24/18 group members Time Started:: 10:20 Time Stopped:: 11:17 Targeted Problem #:: 1 Type of Group:: Illness Management Goal of Group:: To identify the importance of change, increase understanding of difficulty of making change, identify what clients would like to make changes in and identify the barriers or obstacles that get in the way of change. Client Response/Progress/Benefit:: Client responded well to session, active participant. Client connected with quote, stating, if you keep re-reading you ruminate and should on yourself.? Client stated it is okay to reflect on the past if it is for growth and learn from mistakes, but it is not helpful to blame or peanut separator. Client reported change is hard and scary, but it has been helpful for her as client has learned how to manage emotions and overcome hardships. Client identified changes she would like to make this week as start journaling, send out resumes, and continue to be active with her dog. Client shared these changes would help client maintain progress and manage stress at work. Client identified barriers to these goals such as manipulation from unhealthy supports and procrastination. Client appeared to benefit from gaining awareness of the importance of change and identifying changes she would like to make this week. Progress noted as shown by client report of reduced symptoms and improved outlook. Eye Contact:: Good Motor Activity:: Appropriate Appearance:: Neat Speech:: Appropriate Mood:: Anxious Affect:: Full Thoughts:: Linear, Logical, No evidence of hallucinations/delusions noted Staff Interventions:: Therapist facilitated discussion about change and helped client?s make connections of why change is important. Therapist led group in an experiential activity which involved client?s identifying changes want to make and barriers that get in the way of making those changes. Therapist utilized activity as a tool to help client?s make connections of difficulties in making changes and identify what helps overcome barriers to change. Psychotherapy Session #3 Date Open:: 04/24/18 - group members Time Started:: 11:23 Time Stopped:: 12:15 Targeted Problem #:: 1 Type of Group:: Functional Skills Development Goal of Group:: To identify specific barriers to an identified change clients want to make and identify ways to overcome those barriers. Client Response/Progress/Benefit:: Client responded well to session, active participant. Client connected to the activity sharing, ?change is one step at a time and takes help from supports.? Client identified her goal for the week as sending out resumes by the end of the week. Client stated she wants to make this change because it will reduce stress and help client feel productive. Client's barriers were procrastination and negative thinking. Client helped the group create strategies to overcome these barriers such as setting a timer, having an accountability support, focusing on the benefits, and setting small goals. Client appeared to benefit from identifying strategies to overcome barriers. Client has demonstrated progress with utilizing healthy coping skills and managing emotions. Client to discharge from [facility] today. Eye Contact:: Good Motor Activity:: Appropriate Appearance:: Neat Speech:: Appropriate Mood:: Euthymic Affect:: Full Thoughts:: Linear, Logical, No evidence of hallucinations/delusions noted Staff Interventions:: Therapist facilitated discussion about what helped the group overcome challenges that came about during the experiential activity. Therapist utilized the activity as a tool in relating those experiences to ways to overcome barriers with challenges in their life when trying to make change. Therapist group into smaller groups and had them brainstorm ways to overcome certain barriers to their identified change. Therapist provided support by using reflective listening and providing feedback.
--- NOTE | 2018-04-24 14:42 | BH.MDN_ITS ---
Multi-Disciplinary Note - Note 30-min Individual Time Started:: 12:25 Date: 04/24/18 Purpose of session/treatment goals addressed:: Purpose of session was to review treatment progress and solidfy aftercare post dicharge. Eye Contact:: Good Motor Activity:: Appropriate Appearance:: Neat Speech:: Appropriate Mood:: Euthymic, Anxious Affect:: Full Thoughts:: Linear, Logical, No evidence of hallucinations/delusions noted Staff Interventions:: Therapist utilized open ended questions to elicit client' s thoughts about treatment progress since entering [facility]. Therapist elicited client's thought on which strategies and skills would be most beneficial for client to continue doing in order to maintain success. Therapist discussed current aftercare plans. Provided support by validating emotions. Provided aftercare plan with progress, strategies for success, and appointment days for aftercare providers. Client Response:: Client reported she is feeling happy, but yet anxious to be done with [facility] today. Client shared she really enjoyed coming to [facility] and will miss all the support that was provided to her throughout. Client shared she has seen lots of progress in herself with being able to radically accept various aspects in her life and see things in a more positive light. Client reported challening her negative mindset has really helped her see more positive throughout the days. Client shared completing positive affirmations on a daily basis has contributed to increased self esteem and confidence. Client reported she is feeling able to perform to an ability she hasn't been able to in a long time. Recognized she needed to start coping in a different way then she has for the past few years. Client agreeable to follow up with already established outpatient counselor and psychiatrist. Client agreeable with aftercare plan. Risks/Concerns:: Client does not present any risks or concerns at this time. Progress Toward Goals/Plan:: Client has demonstrated progress with overall decrease in both depressive and anxious symptoms. Client is consistently challenging and reframing negative or distorted thought patterns. Client is consistently utilizing the healthy coping strategies that have been taught to you. Client is focused on creating SMART goals. 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 Plan is for client to discharge from [facility] level of care today and follow up with aftercare plan. Time Stopped:: 12:50
--- NOTE | 2018-04-25 08:15 | BH.SGPN_ITS ---
Service Group Progress Note - Session Psychotherapy Session #2 Date Open:: 04/21/18 Time Started:: 10:12 Time Stopped:: 11:04 Targeted Problem #:: 1 Type of Group:: Illness Management - 6 participants Goal of Group:: The goal of group was to increase understanding of the benefits social support provides in mental health wellness. Another goal was to increase self-awareness of the barriers that prevent client to seeking support or utilizing the support they have. Client Response/Progress/Benefit:: Client did well to remain engaged throughout the session and was an active participant. She worked with the group to discuss various benefits of a strong support system. Client benefitted from the activity portion of the group in which she was challenged to communicate with her team how to big a structure without them being able to see it. She did well to identify ways in which the different points of view impacted communication and was able to relate this back to communicating mental health needs to be supports. She displayed progress in her ability to internalize the activity take aways. Recommended for continued tx to promote ongoing consistency of healthy skill set and prevent decompensation while completing aftercare planning. Eye Contact:: Good Motor Activity:: Appropriate Appearance:: Neat Speech:: Appropriate Mood:: Euthymic Affect:: Congruent Thoughts:: Linear, Logical, No evidence of hallucinations/delusions noted Staff Interventions:: Therapist led a group discussion about importance of social supports. Therapist facilitated an activity that required the group members to utilize support from each other. Therapist utilized the activity as a tool to connect the importance of accepting social support. Therapist provided support through reflective listening and giving feedback. Psychotherapy Session #3 Date Open:: 04/25/18 Time Started:: 11:12 Time Stopped:: 12:03 Targeted Problem #:: 1 Type of Group:: Functional Skills Development - 6 participants Goal of Group:: The goal of group was to increase understanding of the different types of social support. Another goal was to identify one type of support the client?s desire from their support system and brainstorm ways to best communicate these needs as well establish one small step towards achieving that support. Client Response/Progress/Benefit:: Client again was able to remain engaged in session and was an active participant. She responded well to discussion reviewing potential barriers to communicating mental health needs with supports. Client connected with a fellow participant who shared that they sometimes struggle with knowing what type of support they may need. Client benefitted from the review of potential types of support and how they promote ongoing mental health maintenance. She showed progress in her ability to identify specific steps to take towards acquiring this support as evidenced by client sharing a goal of creating a backup plan with her supports to address potential mental health crisis in the future. Client to discharge from [facility] program on Tuesday and is recommended reviewing this goal as well as effective communication skills during after care planning. Eye Contact:: Good Motor Activity:: Appropriate Appearance:: Neat Speech:: Appropriate Mood:: Euthymic Affect:: Congruent Thoughts:: Linear, Logical, No evidence of hallucinations/delusions noted Staff Interventions:: Therapist facilitated group discussion on the different types of social support and importance of each type of support. A social support worksheet, was utilized to give clients direction in identifying which type of support they desired, how it will help, and identifying the first small step towards the desired support. Therapist provided homework for each group member to try and accomplish the one small step each group member identified on the worksheet.
== END 2018-04-24 14:00 | disposition home or self-care (01) ==
LOC: BHIOP 09:00
PROVIDERS: Visit Provider Psychiatry & Neurology Psychiatry
DX: F33.1 Major depressive disorder, recurrent, moderate (principal); F41.9 Anxiety disorder, unspecified
CPT/HCPCS: H0035; 90832; 90853